=== PATIENT | female | born 1995 | race Caucasian/White ===

== ENCOUNTER 2023-11-21 13:44 | Outpatient (CLI) | payer OTHER, SELFPAY ==
--- NOTE | ~2023-11-21 | US_ITS ---
EXAMINATION: US thyroid DATE: 11/21/2023 14:05 INDICATION: Thyroid nodule. TECHNIQUE: Multiple ultrasound images of the thyroid were obtained. COMPARISON: None. FINDINGS: The right thyroid lobe measures 6.4 x 2.4 x 2.0 cm. The left thyroid lobe measures 7.0 x 3.3 x 3.9 c m. The thyroid demonstrates heterogeneous hypoechogenicity. Vascularity is normal. In the left thyro id lobe, there is a 4.7 cm solid, isoechoic, wider than tall nodule with smooth margins without echog enic foci (TI-RADS TR3). In the left thyroid lobe, there is a 2.3 cm solid, isoechoic, wider than dinorah l nodule with smooth margins without echogenic foci (TR3). In the right thyroid lobe, there is a 3.1 cm solid, isoechoic, wider than tall nodule with smooth margins without echogenic foci (TR3). IMPRESSION: 1. Multinodular goiter. By report, the patient has a history of benign biopsy. Correlation with prior outside imaging is recommended to determine management. Reviewed, dictated and finalized at location E.
== END 2023-11-21 13:45 ==
LOC: MICIMG 13:44
PROVIDERS: PCP Emergency Medicine; Visit Provider Emergency Medicine
DX: E04.2 Nontoxic multinodular goiter (principal)
CPT/HCPCS: 76536

== ENCOUNTER 2024-05-28 13:11 | Outpatient (CLI) | payer OTHER, SELFPAY | END 2024-05-28 13:12 | disposition home or self-care (01) | PROVIDERS: Student in an Organized Health Care Education/Training Program; PCP Emergency Medicine; Visit Provider Obstetrics & Gynecology | DX: N94.89 Other specified conditions associated with female genital organs and menstrual cycle (principal) | CPT/HCPCS: 36415; 81329; 87086 ==

== ENCOUNTER 2024-07-02 12:09 | Outpatient (CLI) | payer OTHER, SELFPAY ==
[2024-07-02 13:11] LABS: Free T4 Free Thyroxine 0.59 ng/dL (0.78-2.19)
== END 2024-07-02 12:10 | disposition home or self-care (01) ==
LOC: ANHLAB 12:11
PROVIDERS: PCP Emergency Medicine; Visit Provider Obstetrics & Gynecology
DX: E06.3 Autoimmune thyroiditis (principal)
CPT/HCPCS: 36415; 84439; 84443

== ENCOUNTER 2024-07-27 13:06 | Outpatient (CLI) | payer OTHER, SELFPAY ==
[2024-07-27 14:31] LABS: Free T4 Free Thyroxine 0.62 ng/dL (0.78-2.19)
[2024-07-29 03:54] LABS: T3 Free 3.1 pg/mL (2.3-4.2)
== END 2024-07-27 13:07 | disposition home or self-care (01) ==
LOC: ANHLAB 13:09
PROVIDERS: PCP Emergency Medicine; Visit Provider Obstetrics & Gynecology
DX: E06.3 Autoimmune thyroiditis (principal)
CPT/HCPCS: 36415; 84439; 84443; 84480

== ENCOUNTER 2024-08-02 10:29 | Outpatient (CLI) | payer OTHER, SELFPAY ==
--- NOTE | ~2024-08-02 | US_ITS ---
EXAMINATION: US thyroid DATE: 08/02/2024 10:57 INDICATION: Nontoxic single thyroid nodule. Felicity's thyroiditis. TECHNIQUE: Multiple ultrasound images of the thyroid were obtained. COMPARISON: Ultrasound 11/21/2023 FINDINGS: The right thyroid lobe measures 5.8 x 2.4 x 3.0 cm. The left thyroid lobe measures 7.6 x 4.0 x 4.0 c m. In the left thyroid lobe, there is a 4.1 cm solid, isoechoic, wider than tall nodule with ill-def ined margin without echogenic foci (TI-RADS TR3). In the right thyroid lobe, there is a 3.1 cm solid, isoechoic, wider than tall nodule with ill-defined margin without echogenic foci (TR3). IMPRESSION: 1. Multinodular goiter, stable from 11/21/2023. By report, the patient has a history of benign biopsy. Correlate with prior outside imaging is recommended to determine management. Reviewed, dictated and finalized at location A. [employer] IMPRESSION: 1. Multinodular goiter, stable from 11/21/2023. By report, the patient has a his tory of benign biopsy. Correlate with prior outside imaging is recommended to d etermine management.
== END 2024-08-02 10:30 | disposition home or self-care (01) ==
PROVIDERS: PCP Family Medicine; Visit Provider Emergency Medicine
DX: E04.2 Nontoxic multinodular goiter (principal)
CPT/HCPCS: 76536

== ENCOUNTER 2024-11-25 12:34 | Observation (INO) | payer OTHER, SELFPAY ==
[2024-11-25] VITALS (60 sets, daily range): BP systolic 104; BP diastolic 49; PULSE 67–100; O2SAT 96–100; BMI 36.1
--- NOTE | ~2024-11-25 | US_ITS ---
EXAMINATION: US OB BPP wo non-stress DATE: 11/25/2024 16:41 INDICATION: cardiac decelerations. Assess amniotic fluid index and biophysical profile TECHNIQUE: Real-time pelvic ultrasound was performed. The interpreting radiologist was not present fo r the study. COMPARISON: None. FINDINGS: There is a single living fetus in vertex presentation. The placenta is anterior and not low-lying. F etal heart rate is 143 beats per minute (bpm). Amniotic fluid index measures 15.1 cm which is normal (5th%-95%: 7.5-84.4 cm at 37 weeks estimated gestational age). Biophysical profile performed by the technologist: breathing (30 sec sustained breathing in 30 minutes): 2 out of 2 movement (3 gross body movements in 30 minutes): 2 out of 2 tone (one episode of esqatrf-wliikftfq-qvydbpz limb movement): 2 out of 2 Amniotic fluid pocket (2 cm): 2 out of 2 Total score: 8 out of 8 IMPRESSION: 1. Single living fetus in vertex presentation with heart rate of 143 bpm. 2. Biophysical profile 8 out of 8. 3. Normal amniotic fluid index of 15.1 cm. Reviewed, dictated and finalized at location A.
--- OUTSIDE RECORDS SUMMARY | 2024-11-25 13:25 | XMS_ITS | Encounter Summary ---
Author Organization [facility] Healthcare Address [address] [place] [id number] Care Team Providers Care Supervisor [employer] Name Role Phone Jonathan Linton MD Primary Care Provider Allison Leal MD Unavailable [phone] Encounter Details Date Type Department Care Team (Late st Contact Info) Description 10/04/2024 Results Follow-Up [facility] Medical Group Primary Care at [address] [id number] Jonathan Linton MD [address] [place] [address] [address] [place] [address] Hepatitis C antibody Blood, Thyroid peroxidase antibody (TPO), TSH receptor antibody, Additional followed-up results: 8 Social History Tobacco Use Types Packs/Day Years Used Date Smoking Tobacco: Never Smokeless Tobacco: Never PHQ-2 Answer Date Recorded PHQ-2 Total Score (If total score is 3 or more points, staff should administer the PHQ-9) 0 09/30/2024 Comments Yes Sex and Gender Information Value Date Recorded Sex Assigned at Not on file Legal Sex Female 11:24 AM CDT Gender Identity Not on file Sexual Orientation Not on file documented as of this encounter Miscellaneous Notes * Result Encounter Note - Jonathan Linton MD - 10/04/2024 4:57 AM CDT Antibody testing - shows no elevated thyroid peroxidase antibody or TSH receptor antibody. Normal TSH but low T4 which is unusual. Also if you had cruz I would have expected antibody testing to be positive. I will have my staff request your most recent lab results from your OBGYN as well as primary care provider regarding a thyroid function/hormones. Given your I want to confirm this sooner with repeat testing in 3 weeks. Staff can we request prior lab work done from her OBGYN and Previous primary care provider regarding her thyroid hormones to confirm and compare from past 1 year only documented in this encounter Plan of Treatment Scheduled Orders Name Type Priority Associated Diagnoses Orde r Schedule TSH Lab Routine Cruz thyroiditis Expected: 10/18/2024 (Approximate), Expires: 04/05/2025 T4, free Lab Routine Cruz thyroiditis Expected: 10/18/2024 (Approximate), Expires: 04/05/2025 documented as of this encounter Visit Diagnoses Diagnosis Cruz thyroiditis- Primary documented in this encounter Care Teams Supervisor [employer] Relationship Specialty Start Date End Date Jonathan Linton MD PCP - General Family Medicine 09/30/24 Allison Leal MD [address] [place] [address] Obstetrics and Gynecology 09/30/24 documented as of this encounter
--- OUTSIDE RECORDS SUMMARY | 2024-11-25 13:25 | XMS_ITS | Referral Summary ---
Author Organization [facility] Address [address] [place] [address] Phone Care Team Providers Care [employer] Name Role Phone Jonathan Linton MD Primary Care Provider Allison Leal MD Unavailable [phone] Encounters Date Type Department Care Team Description 10/13/2024 Telephone [facility] Primary Care at [address] [id number] Jonathan Linton MD Medical Question/Miscellaneo us 10/04/2024 Results Follow-Up [facility] Primary Care at [address] [id number] Jonathan Linton MD Hepatitis C antibody Blood, Thyroid peroxidase antibody (TPO), TSH receptor antibody, Additional followed-up results: 8 09/30/2024 5:28 PM CDT - 09/30/2024 11:59 PM CDT Hospital Encounter [address] [address] Encounter for hepatitis C screening test for low risk patient; Cruz thyroiditis; Multiple thyroid nodules; Obesity (BMI 30-39.9) Discharge Disposition: Discharge to home or self care 09/30/2024 9:30 AM CDT Lab [facility] Outpatient Lab at [address] [address] Cruz thyroiditis (Primary Dx) 09/30/2024 8:30 AM CDT Office Visit [facility] Primary Care at [address] [address] Jonathan Linton MD Multiple thyroid nodules (Primary Dx); Cruz thyroiditis; History of gestational hypertension; Obesity (BMI 30-39.9); Encounter for hepatitis C screening test for low risk patient; with 29 completed weeks gestation from Last 3 Months Allergies No known active allergies Medications VIT 10-IRON FUM-FOLIC ORAL Take by mouth daily Active aspirin 81 mg chewable tablet Take 1 tablet (81 mg total) by mouth daily Active Active Problems Problem Noted Date Diagnosed Date Multiple thyroid nodules 09/30/2024 Assessment & Plan (09/30/2024 11:51 AM CDT): - known condition - past US thyroid 07/2024 in file, showed stable findings in comparison to imaging from 11/2024 - In July 2024, an ultrasound showed a multinodular goiter, stable from November 2023. The right thyroid lobe has a solid nodule, and the left lobe has a 4.1 cm solid nodule classified as Trd 3. - past hx of benign finding on FNA in 2015, will try to request this record in future - hx of cruz's - check labs and antibodies with 29 completed weeks gestation 09/05 History of gestational hypertension 03/03/2024 Assessment & Plan (09/30/2024 11:49 AM CDT): BP Readings from Last 3 Encounters: 09/30/24 102/64 Delivery at 37 weeks for gestational HTN in the past Currently at 29 weeks Cruz thyroiditis 03/03/2024 Overview (10/12/2024): Low Free T4 09/28 - noted with normal T3 and normal TSH Antibody testing - no elevated Thyroid peroxidase antibody or TSH receptor antibody TSIG <=1.3 <1.0 Lab Results Component Value Date TSH 2.73 09/30/2024 FREET4 0.61 (L) 09/30/2024 From [facility] labs on 02/2024 patient had elevated thyroglobulin antibodies 391, and elevated thyroid peroxidase antibodies at 46 Assessment & Plan (09/30/2024 11:52 AM CDT): - diagnosed around 02/2024 via antibody testng - has known thyroid nodules, see other a/p section - never needed medication for low thyroid - recheck labs and antibodies Diagnosed in March 2024 after examination revealed an enlarged thyroid, confirmed by antibodies and ultrasound. Current ultrasound from July 2024 shows a multinodular goiter, well-managed since November 2023. No current need for thyroid medication as thyroid function tests remain within normal limits, though T4 is at the low end of normal. can affect thyroid levels. Discussed Cruz's, potential progression to hypothyroidism, and importance of monitoring thyroid function, especially during . Explained antibodies do not necessarily indicate dysfunction and thyroid nodules rarely affect function. Emphasized monitoring TSH and T4 levels during , as low levels can be problematic. - Reviewed previous US records from 07/2024 - past US thyroid 07/2024 in file, showed stable findings in comparison to imaging from 11/2024 - In future will request FNA results from around 2015 - Order blood work including thyroid function tests and antibodies - Monitor thyroid function during - Follow up in six months post- No results found for: TSH Comments Yes Resolved Problems Problem Noted Date Diagnosed Date Resolved Date Factor V Leiden mutation 03/03/2024 Immunizations Immunization Administration Dates Next Due HPV, Unspecified 07/31/2007,02/10/2007, 7 Hep B Vaccine 03/16/2016 Hep B, Adolescent or Pediatric 10/12/2015,2015 Influenza, Quadrivalent, Rec ombinant, Egg Free, Preservative Free, Intramuscular 04/01/2023 Influenza, Quadrivalent, Spl it, Intramuscular 03/05/2019 Influenza, Quadrivalent, Spl it, Preservative Free, Intramuscular 02/21/2020,03/16/2016 Influenza, Trivalent, Cell Culture-based MDCK, Preservative Free, Antibiotic Free, Intramuscular 03/18/2022 Influenza, Trivalent, IM (MDV) 03/07/2021 Influenza, Trivalent, Preser vative Free, Intramuscular 04/09/2024 Influenza, Unspecified 02/18/2017 PPD TEST 04/16/2019 Tdap 09/21/2024,,10/02/2016,11/21 Social History Tobacco Use Types Packs/Day Years Used Date Smoking Tobacco: Never Smokeless Tobacco: Never Tobacco Cessation:Counseling Given: Not Answered PHQ-2 Answer Date Recorded PHQ-2 Total Score (If total score is 3 or more points, staff should administer the PHQ-9) 0 09/30/2024 Comments Yes Sex and Gender Information Value Date Recorded Sex Assigned at Not on file Legal Sex Female 11:24 AM CDT Gender Identity Not on file Sexual Orientation Not on file Last Filed Vital Signs Vital Sign Reading Time Taken Comments Blood Pressure 102/64 09/30/2024 8:39 AM CDT Pulse 81 09/30/2024 8:39 AM CDT Temperature 36.8 C (98.2 F) 09/30/2024 8:39 AM CDT Respiratory Rate - - Oxygen Saturation 98% 09/30/2024 8:39 AM CDT Inhaled Oxygen Concentration - - Weight 105.4 kg (232 lb 4.8 oz) 09/30/2024 8:39 AM CDT Height 175.3 cm (5' 9 ) 09/30/2024 8:39 AM CDT Body Mass Index 34.3 09/30/2024 8:39 AM CDT Plan of Treatment Not on file Procedures Procedure Name Priority Date/Time Associated Diagnosis Comments EGFR Routine 09/30/2024 12:00 PM CDT Obesity (BMI 30-39.9) DIFFERENTIAL AUTO Routine 09/30/2024 12: 00 PM CDT Obesity (BMI 30-39.9) CBC WITH AUTO DIFFERENTIAL Routine 09/30/2024 12:00 PM CDT Obesity (BMI 30-39.9) COMPREHENSIVE METABOLIC PANEL Routine 09/30/2024 12:00 PM CDT Obesity (BMI 30-39.9) LIPID PANEL Routine 09/30/2024 12:00 PM CDT Obesity (BMI 30-39.9) TSH Routine 09/30/2024 12:00 PM CDT Multiple thyroid nodules Cruz thyroiditis Obesity (BMI 30-39.9) T3, FREE Routine 09/30/2024 12:00 PM CDT Cruz thyroiditis T4, FREE Routine 09/30/2024 12:00 PM CDT Cruz thyroiditis TSH RECEPTOR ANTIBODY Routine 09/30/2024 12:00 PM CDT Cruz thyroiditis THYROID PEROXIDASE ANTIBODY Routine 09/30/2024 12:00 PM CDT Cruz thyroiditis THYROID STIMULATING IMMUNOGLOBULIN Routine 09/30/2024 12:00 PM CDT Cruz thyroiditis HEPATITIS C ANTIBODY Routine 09/30/2024 12:00 PM CDT Encounter for hepatitis C screening test for low risk patient from Last 3 Months Results * eGFR (09/30/2024 12:00 PM CDT) eGFR >90 >=60 mL/min/1. 73 m2 Comment: Interpretive Data Reference Interval Normal >/= 90 mL/min/1.73m2 Mildly decreased* 60 - 89 mL/min/1.73m2 Mildly to moderately decreased 45 - 59 mL/min/1.73m2 Moderately to severely decreased 30 - 44 mL/min/1.73m2 Severely decreased 15 - 29 mL/min/1.73m2 Kidney Failure < 15 mL/min/1.73m2 *Relative to young adult level Estimated glomerular filtration rate is determined by the 2020 CKD-EPI equation recommended by the National Kidney Foundation (A Unifying Approach to GFR Estimation: Recommendations of the NKF-ASK Task Force on Reassessing the Inclusion of Race in Diagnosing Kidney Disease, JASN 2020). The CKD-EPI equation should not be used for patients with unstable renal function and has not been validated in children and those over 70. Current interpretive data was last reviewed 2021. Blood 09/30/2024 12:0 0 PM CDT 09/30/2024 5:48 PM CDT us Jonathan Linton MD LAB BLOOD ORDERABLES nal Result [facility] [address] [place] [address] * (ABNORMAL) Differential, auto (09/30/2024 12:00 PM CDT) Neutrophil abs 7.8(H) 1.5 - 6.5 K/cumm Imm gran abs 0.2(H) 0.0 - 0.1 K/cumm [facility] Lymphocyte abs 1.8 0.8 - 3.3 K/cumm [facility] Monocyte abs 0.9(H) 0.2 - 0.8 K/cumm [facility] Eosinophil abs 0.2 0.0 - 0.5 K/cumm [facility] Basophil abs 0.0 0.0 - 0.1 K/cumm [facility] Neutrophil pct 71.8 % [facility] Comment: Interpretive Data Percent cell count reference ranges are not reported, since discordance with absolute values may lead to misinterpretation of CBC data. Current Interpretive Data was last revised on 2017. Imm gran pct 1.4 % [facility] Comment: Interpretive Data Percent cell count reference ranges are not reported, since discordance with absolute values may lead to misinterpretation of CBC data. Current Interpretive Data was last revised on 2017. Lymphocyte pct 16.6 % [facility] Comment: Interpretive Data Percent cell count reference ranges are not reported, since discordance with absolute values may lead to misinterpretation of CBC data. Current Interpretive Data was last revised on 2017. Monocyte pct 8.1 % [facility] Comment: Interpretive Data Percent cell count reference ranges are not reported, since discordance with absolute values may lead to misinterpretation of CBC data. Current Interpretive Data was last revised on 2017. Eosinophil pct 1.7 % [facility] Comment: Interpretive Data Percent cell count reference ranges are not reported, since discordance with absolute values may lead to misinterpretation of CBC data. Current Interpretive Data was last revised on 2017. Basophil pct 0.4 % [facility] Comment: Interpretive Data Percent cell count reference ranges are not reported, since discordance with absolute values may lead to misinterpretation of CBC data. Current Interpretive Data was last revised on 2017. Blood 09/30/2024 12:0 0 PM CDT 09/30/2024 5:48 PM CDT Result [facility] Jonathan Linton MD LAB BLOOD ORDERABLES Fi nal Result Performing Organization Address [facility] de Phone Number [facility] [id number] [place] [address] * TSH receptor antibody (09/30/2024 12:00 PM CDT) Pathologist [facility] TSH receptor ab <1.10 0.00 - 1.75 IUnits/L [facility] Comment: ADDITIONAL INFORMATION At a decision limit of 1.75 IU/L, this assay has 97% sensitivity and 99% specificity for detection of Graves' disease. In healthy individuals and in patients with thyroid disease without diagnosis of Graves' disease, the upper limit of anti-TSHR values are 1.22 IU/L and 1.58 IU/L, respectively (97.5th percentiles). Test Performed by: [place] [address] In Service Educator: Angelica Art Ph.D.; CLIA# [id number] Blood 09/30/2024 12:0 0 PM CDT 09/30/2024 5:48 PM CDT Jonathan Linton MD LAB BLOOD ORDERABLES Fi nal Result Performing Organization Address [facility] Co de Phone Number MELISSA[facility]ESS[facility] [phone] [place] [address] [facility] * (ABNORMAL) CBC with auto differential (09/30/2024 12:00 PM CDT) Pathologist [facility] WBC 10.9(H) 3.8 - 9.9 K/cumm Hgb 12.1 11.9 - 15.5 g/dL [facility] Hct 39.2 35.6 - 45.5 % [facility] Plt 211 150 - 400 K/cumm [facility] MPV 11.2 9.1 - 12.3 fL [facility] RBC 4.05 3.90 - 5.20 M/cumm [facility] MCV 96.8(H) 81.3 - 96.4 fL [facility] MCH 29.9 27.1 - 33.3 pg [facility] MCHC 30.9(L) 32.3 - 35.7 g/dL [facility] CH RDW CV 13.9 11.1 - 14.9 % [facility] RDW SD 49.3(H) 35.7 - 48.1 fL [facility] NRBC abs 0.00 0.00 - 0.01 K/cumm [facility] Blood 09/30/2024 12:0 0 PM CDT 09/30/2024 5:48 PM CDT Jonathan Linton MD LAB BLOOD ORDERABLES Fi nal Result Performing Organization Address [facility] de Phone Number [facility] [address] [place] [place] [place] [address] * Hepatitis C antibody Blood (09/30/2024 12:00 PM CDT) Hep C Ab Nonreactive Nonreactive Comment: Interpretive Data Nonreactive: Antibodies to HCV not detected. Does NOT exclude the possibility of recent exposure to HCV. Equivocal: Equivocal for HCV antibodies. Supplemental molecular testing will be automatically performed to determine infection status in accordance with current CDC screening recommendations. Reactive: Positive for HCV antibodies. This may represent current or past HCV infection. Supplemental molecular testing will be automatically performed to determine current infection status in accordance with current CDC screening recommendations. Interpretive data was last revised on 2019. Blood 09/30/2024 12:0 0 PM CDT 09/30/2024 5:48 PM CDT Jonathan Linton MD LAB MICROBIOLOGY - GENE RAL ORDERABLES Final Result Performing Organization Address City/[facility] Co de Phone Number [facility] [phone] [employer] [address] * Thyroid peroxidase antibody (TPO) (09/30/2024 12:00 PM CDT) Anti Thyroid Peroxidase <30 <=34 IUnits/mL Comment: ATPO Interpretive Data Results may be up to 28% higher in patients receiving Itraconazole. Current interpretive data was last revised 2020. Testing performed by: [facility], [address] [place]., [address] Blood 09/30/2024 12:0 0 PM CDT 10/01/2024 10:06 AM CDT Jonathan Linton MD LAB BLOOD ORDERABLES Fi nal Result [facility] [address] [place] [address] * Thyroid stimulating immunoglobulin (09/30/2024 12:00 PM CDT) Pathologist [facility] TSIG <1.0 <=1.3 [facility] Comment: Test Performed by: [place] [id number] In Service Educator: Angelica Art Ph.D.; CLIA# [id number] Blood 09/30/2024 12:0 0 PM CDT 09/30/2024 5:48 PM CDT Jonathan Linton MD LAB [place]LOOD [place] [address] [address] [facility] [place] [address] [place] ref Lab * T3, free (09/30/2024 12:00 PM CDT) Pathologist [facility] Free T3 2.8 2.0 - 4.4 pg/mL Blood 09/30/2024 12:0 0 PM CDT 09/30/2024 5:48 PM CDT Jonathan Linton MD LAB BLOOD ORDERABLES Fi nal Result Performing Organization Address [facility] Co de Phone Number [facility] [phone] [facility] [place] [address] * TSH (09/30/2024 12:00 PM CDT) Thyroid Stimulating Hormone 2.73 0.30 - 4.20 mcIUnit/mL Blood 09/30/2024 12:0 0 PM CDT 09/30/2024 5:48 PM CDT Jonathan Linton MD LAB BLOOD ORDERABLES Fi nal Result Performing Organization Address [facility] de Phone Number [facility] [address] [facility] [place] [address] * (ABNORMAL) T4, free (09/30/2024 12:00 PM CDT) Free T4 0.61(L) 0.90 - 1.70 ng/dL Blood 09/30/2024 12:0 0 PM CDT 09/30/2024 5:48 PM CDT Jonathan Linton MD LAB BLOOD ORDERABLES Fi nal Result Performing Organization Address [facility] Co de Phone Number [facility] [address] [place] [address] * (ABNORMAL) Lipid panel (09/30/2024 12:00 PM CDT) Cholesterol 228(H) 30 - 199 mg/dL Comment: Interpretive Data Ages < or = 19 years Acceptable: <170 mg/dL Borderline high: 170-199 mg/dL High: >or= 200 mg/dL Ages > or = 20 years Desirable: <200 mg/dL Borderline high: 200-239 mg/dL High: >or= 240 mg/dL Literature References: 1. Expert Panel on Integrated Guidelines for Cardiovascular Health and Risk Reduction in Children and Adolescents. Pediatrics 2011;128:S213 2. NCEP Expert Panel. Circulation 2004;110:227 Current Interpretive Data was last revised on 2018. Triglycerides 147 <=149 mg/dL [facility] Comment: Interpretive Data Ages < or = 9 years Acceptable: <75 mg/dL Borderline high: 75-99 mg/dL High: >or= 100 mg/dL Ages 10 to 20 years Acceptable: <90 mg/dL Borderline high: 90-129 mg/dL High: >or= 130 mg/dL Ages > or = 20 years Desirable: <150 mg/dL Borderline high: 150-199 mg/dL High: 200-499 mg/dL Very high: >or= 499 mg/dL Literature References: 1. Expert Panel on Integrated Guidelines for Cardiovascular Health and Risk Reduction in Children and Adolescents. Pediatrics 2011;128:S213 2. NCEP Expert Panel. Circulation 2004;110:227 Current Interpretive Data was last revised on 2018. HDL 101 >=40 mg/dL [facility] Comment: Interpretive Data Ages < or = 19 years Acceptable: >45 mg/dL Borderline low: 40-45 mg/dL Low: <40 mg/dL Ages > or = 20 years Desirable: >or= 60 mg/dL Low: <40 mg/dL Literature References: 1. Expert Panel on Integrated Guidelines for Cardiovascular Health and Risk Reduction in Children and Adolescents. Pediatrics 2011;128:S213 2. NCEP Expert Panel. Circulation 2003;110:227 Current Interpretive Data was last revised on 2018. LDL, calculated 102 <=129 mg/dL [facility] Comment: Interpretive Data Ages < or = 19 years Acceptable: <110 mg/dL Borderline high: 110-129 mg/dL High: >or= 130 mg/dL Ages > or = 20 years Optimal: <100 mg/dL Near optimal: 100-129 mg/dL Borderline high: 130-159 mg/dL High: >160 mg/dL Calculated using the Quirino LDL-C estimating equation. This equation was implemented on 2024. Prior to this date LDL-C was estimated using the Friedewald equation. Literature References: 1. Expert Panel on Integrated Guidelines for Cardiovascular Health and Risk Reduction in Children and Adolescents. Pediatrics 2011;128:S213 2. NCEP Expert Panel. Circulation 2004;110:227 3. Quirino Hoover et al. RAFAEL Cardiol. 2020 May 1;5(5):540-548. doi: 10.1001/jamacardio.2020.0013 Current Interpretive Data was last revised on 2024. Non-HDL Cholesterol 127 mg/dL [facility] Comment: Interpretive Data Ages < or = 19 years Acceptable: <120 mg/dL Borderline high: 120-144 mg/dL High: >145 mg/dL Ages > or = 20 years When triglycerides are >200 mg/dL, Non-HDL cholesterol is a secondary target of therapy with treatment goals that are 30 mg/dL greater than the LDL cholesterol target. Literature References: 1. Expert Panel on Integrated Guidelines for Cardiovascular Health and Risk Reduction in Children and Adolescents. Pediatrics 2011;128:S213 2. NCEP Expert Panel. Circulation 2004;110:227 Current Interpretive Data was last revised on 2018. Chol/HDL ratio 2 [facility] Blood 09/30/2024 12:0 0 PM CDT 09/30/2024 5:48 PM CDT Narrative [facility] - 09/30/2024 6:31 PM CDT Has the patient been fasting for 8 hours or more?->No Jonathan Linton MD LAB BLOOD ORDERABLES nal Result [facility] [address] [place] [address] * (ABNORMAL) Comprehensive metabolic panel (09/30/2024 12:00 PM CDT) Sodium 138 135 - 145 mmol/L Potassium, pl 4.4 3.3 - 4.9 mmol/L [facility] Chloride 106 97 - 110 mmol/L [facility] CO2 24 22 - 32 mmol/L [facility] Anion gap 8 2 - 15 mmol/L [facility] BUN 7 6 - 25 mg/dL [facility] Creatinine 0.52(L) 0.60 - 1.10 mg/dL [facility] Glucose 72 70 - 199 mg/dL [facility] Comment: Interpretive Data Fasting glucose >/= 126 mg/dl is diagnostic for diabetes. Fasting is defined as no caloric intake for at least 8 hours. Fasting glucose between 100 mg/dl to 125 mg/dl is diagnostic of prediabetes. In a patient with classic symptoms of hyperglycemia or hyperglycemic crisis, a random glucose >/= 200 mg/dl is diagnostic for diabetes. In the absence of unequivocal hyperglycemia, results should be confirmed by repeat testing. The classification and Diagnosis of Diabetes Diabetes Care 2021; 46: S19-S40. Current interpretive data was last revised 2022. Calcium 9.1 8.5 - 10.3 mg/dL [facility] Bilirubin, total <0.2 0.1 - 1.2 mg/dL [facility] Protein, pl 6.5 6.5 - 8.5 g/dL [facility] Albumin 3.7 3.5 - 5.0 g/dL [facility] Alk phos 53 40 - 130 Units/L [facility] ALT 16 7 - 45 Units/L [facility] AST 23 10 - 45 Units/L [facility] Blood 09/30/2024 12:0 0 PM CDT 09/30/2024 5:48 PM CDT us Jonathan Linton MD LAB BLOOD ORDERABLES nal Result [facility] [address] [place] [address] from Last 3 Months Insurance [facility] [employer] SIG [id number] Care Teams [employer] Relationship Specialty Start Date End Date Jonathan Linton MD PCP - General Family Medicine 09/30/24 Allison Leal MD [address] [place] [address] Obstetrics and Gynecology 09/30/24
--- OUTSIDE RECORDS SUMMARY | 2024-11-25 13:25 | XMS_ITS | Clinical Summary ---
Author Organization [facility] [employer] Address [address] [place] [address] Care Team Providers Care Dairy Laboratory Technician Name Role Phone Unavailable Primary Care Provider Unavailabl e Source Comments [facility] [employer],non-owned Affiliates and Associated Physician Practices is amultiple site organization consisting of ambulatory clinics and hospital sitesin [place], [place], [place] and [place]. This disclosure is being madepursuant to the Care Everywhere program and may not contain all information available regarding this patient. Last updated 18.[facility] [employer] Allergies No known active allergies Medications * Be aware that medications may not be up to date on this document. Alwaysverify current medications with the patient. 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); FV Leiden HTZG 07/03/2024 Hypothyroid in , antepartum 07/03/2024 History of gestational hypertension 07/03/2024 BMI 33.0-33.9,adult 07/03/2024 Obesity affecting , antepartum 07/03/20 24 Factor 5 Leiden mutation, heterozygous 9 Multiple thyroid nodules 02/16/2019 Estimated Date of Delivery Comme nts Yes 12/16/2024 Based on last me nstrual period of 03/11/2024 Resolved Problems Problem Noted Date Diagnosed Date Resolved Date Gestational hypertension, third trimester 07/26/2020 07/03/2024 with 37 weeks completed gestation 07/26/2020 07/03/2024 Gestational hypertension 07/18/2020 IUD (intrauterine device) in place 12/06/2019 Overview (02/12/2019): ParaGard IUD placed 12/16/14 Encounters Date Type Department Care Team Description 11/03/2024 8:15 AM CDT - 11/03/2024 11:59 PM CDT Hospital Encounter [facility] [address] [place] [id number] Vern Gee MD Discharge Disposition: Home or Self Care 11/01/2024 Orders Only [facility] [address] [place] [phone] Mare Rivera, AD SETTER-CHECKER CASHIER 10/06/2024 1:45 PM CDT - 10/06/2024 11:59 PM CDT Hospital Encounter [facility] [address] [place] [address] [phone] Vern Gee MD Discharge Disposition: Home or Self Care 09/08/2024 12:54 PM ENGINEERING SUPERVISOR - 09/08/2024 11:59 PM ENGINEERING SUPERVISOR Hospital Encounter [facility] [address] [place] [phone] Vern Gee MD Discharge Disposition: Home or Self Care 09/08/2024 Orders Only [facility] [address] [place] [phone] Mare Rivera, AD SETTER-CHECKER CASHIER from Last 3 Months Immunizations Immunization Administration Dates Next Due CovCartiva primary monoval ent 12+ yr 0.3mL Purple cap 07/15/2020,06/28/2020 HEP B VACCINE, ADULT 3 DOSE 03/16/2016 HEP B VACCINE, PED/ADOL 10/12/2015,09/14/2015 HPV VACCINE 07/31/2007,02/10/2007,11/21/2006 INFLUENZA VACCINE 02/18/2017 INFLUENZA VACCINE, QUADR. (F LUZONE; FLULAVAL; FLUARIX; AFLURIA QUADRIVALENT; 6MO+), 0.5 ML (IIV4) 02/21/2020,03/05/2019,03/16/2016 TDAP (7yrs+) 05/16/2020,10/02/2016,11/21/2006 Family History Medical History Relation Name Comments Other Maternal Aunt Factor IV Cancer - Breast Maternal Grandmother Other Mother Factor IV Relation Name Status Comments Maternal Aunt Maternal Grandmother Mother Social History Tobacco Use Types Packs/Day Years Used Date Smoking Tobacco: Never Smokeless Tobacco: Never Alcohol Use Standard Drinks/Week Comments Not Currently 0 (1 standard drink = 0.6 oz pur e alcohol) AUDIT-C Answer Date Recorded Frequency of Alcohol Consumption Monthly or less 02/16/2019 Average Number of Drinks 3 or 4 019 Frequency of Binge Drinking Less than monthly Prospect Depression Scale Answer Date Recorded Last EPDS Total Score Not on file 09/06/2020 The thought of harming myself has occurred to me . Never 09/06/2020 Estimated Date of Delivery Comme nts Yes 12/16/2024 Based on last me nstrual period of 03/11/2024 Sex and Gender Information Value Date Recorded Sex Assigned at Not on file Legal Sex Female 2:35 PM CDT Gender Identity Not on file Sexual Orientation Not on file Last Filed Vital Signs Vital Sign Reading Time Taken Comments Blood Pressure 106/64 11/03/2024 8:38 AM CDT Pulse 71 11/03/2024 8:38 AM CDT Temperature 36.7 C (98 F) 09/21/2020 5:13 PM CDT Respiratory Rate 18 09/21/2020 5:13 PM CDT Oxygen Saturation 100% 09/21/2020 5:13 PM CDT Inhaled Oxygen Concentration - - Weight 108 kg (238 lb) 11/03/2024 8:38 AM CDT Height 175.3 cm (5' 9 ) 07/02/2024 11:28 AM ENGINEERING SUPERVISOR Body Mass Index 35.15 07/02/2024 11:28 AM ENGINEERING SUPERVISOR Plan of Treatment Upcoming Encounters Date Type Department Care Team (Late st Contact Info) Description 12/01/2024 9:45 AM CDT Hospital Encounter [facility] [address] [place], [place] [phone] Health Maintenance Due Date Last Done Comments HEPATITIS B VACCINE (2 of 3 - 19+ 3-dose series) 04/13/2016 03/16/2016, 10/12/2015, 09/14/2015 PAP SMEAR 10/10/2023 10/09/2020, 02/04, 12/27/2017, Additional history exists COVID-19 VACCINE ( season) 2024 07/15/2020, 06/28/2020 DEPRESSION SCREENING 07/07/2024 OB-ONE HOUR GLUCOSE 09/09/2024 05/16/2020, OB-TDAP CURRENT 09/16/20242019, 10/02/2016, 11/21/2006 OB-GROUP B STREP SCREEN 11/11/2024 07/13/2020 DTAP/TDAP/TD VACCINES (4 - Td or Tdap) 05/16/2030 05/16/2020, 10/02/2016, 11/21/2006 ZOSTER VACCINE (1 of 2) 10/23/2043 HPV VACCINE Completed 07/31/2007, 01/2007, 11/21/2006 HIV SCREENING Completed 05/16/2020, 01/05/2020 HEPATITIS C SCREENING Completed 10/21/2022, 020 INFLUENZA VACCINE Completed 04/09/2024, , 03/18/2022, Additional history exists HIB VACCINE Aged Out No longer eligi ble based on patient's age to complete this topic MENINGOCOCCAL (Group B) VACCINE SHARED DECISION-MAKING Aged Out No longer eligible based on patient's age to complete this topic MENINGOCOCCAL GROUPS A/C/Y/W VACCINE Aged Out No longer eligible based on patient's age to complete this topic PNEUMOCOCCAL VACCINE Aged Out No long er eligible based on patient's age to complete this topic Respiratory Syncytial Virus (RSV) Vaccine Pt: or over 60 yrs (No Doses Required) Completed Procedures Procedure Name Priority Date/Time Associated Diagnosis Comments SONOGRAM - COMPLETE Routine 11/03/2024 8 :10 AM CDT History of gestational hypertension BMI 33.0-33.9,adult Obesity affecting , antepartum, unspecified obesity type (HCC) 29 weeks gestation of (HCC) Encounter for anatomic survey (HCC) Encounter for screening (HCC) TSH 11/01/2024 1:49 PM CDT T4 FREE 11/01/2024 1:49 PM CDT SONOGRAM - COMPLETE Routine 10/06/2024 2 :09 PM CDT History of gestational hypertension BMI 33.0-33.9,adult Obesity affecting , antepartum, unspecified obesity type (HCC) 29 weeks gestation of (HCC) Encounter for anatomic survey (HCC) Encounter for screening (HCC) TSH 09/08/2024 1:54 PM ENGINEERING SUPERVISOR T4 FREE 09/08/2024 1:54 PM ENGINEERING SUPERVISOR PAP IG RFLX HPV HR ALL PATH Routine 10/09/2020 11:03 AM CDT Well woman exam CULTURE STREP B Routine 07/13/2020 4:36 PM ENGINEERING SUPERVISOR Encounter for supervision of normal first in third trimester 35 weeks gestation of GLUCOSE CHALLENGE Routine 05/16/2020 10: 37 AM ENGINEERING SUPERVISOR Encounter for supervision of normal first in second trimester 27 weeks gestation of HIV-1 HIV-2 ANTIBODY + HIV P24 AG PANEL Routine 05/16/2020 10:37 AM ENGINEERING SUPERVISOR Encounter for supervision of normal first in second trimester 27 weeks gestation of HEPATITIS C ANTIBODY Routine 01/05/2020 10:58 AM CDT Encounter for supervision of normal first in first trimester from Last 3 Months or Most Recently Relevant to Health Maintenance Results * SONOGRAM - COMPLETE (11/03/2024 8:10 AM CDT) Only the most recent of2 resultswithin the time period is included. Linked Results Indication ======== Heterozygous Factor V Leiden, Felicity's thyroiditis , Prior gHTN, Obesity class I Maternal SMA carrier, FOB is negative History ====== OB History 3. Para 1 T1A1L1 1. live 2020. Gest. age 37 w + 0 d. Sex of child: female. Details: , gHTN 2. miscarriage 2021 Lab Tests Test Date Result NIPT Low risk, Female Maternal Assessment Physical Exam Height 175 cm, 5 ft 9 in. Weight 108 kg, 238 lb. Initial weight 101 kg, 222 lb. BMI 35.15 kg/m . Initial BMI 32.78 kg/m . Weight gain 7 kg, 16 lb Method ====== Transabdominal ultrasound. View: Sufficient ========= Helm . Number of fetuses: 1 Dating ====== Date Details Gest. age GALE LMP 03/11/2024 33 w + 6 d 12/16/2024 U/S 11/03/2024 based upon AC, BPD, Femur, HC 33 w + 4 d 12/18/2024 Assigned dating based on the LMP, selected on 07/02/2024 33 w + 6 d 12/16/2024 General Evaluation Cardiac activity present. FHR 157 bpm. Presentation: cephalic Placenta: Placental site: anterior Amniotic fluid: Amount of AF: normal. MVP 5.7 cm. PARK 15.0 cm. Q1 2.2 cm, Q2 4.3 cm, Q3 5.7 cm, Q4 2.8 cm Biometry BPD 83.6 mm 33w 5d 40% Hadlock HC 302.0 mm 33w 4d 11% Hadlock AC 291.1 mm 33w 1d 31% Hadlock Femur 65.2 mm 33w 4d 33% Hadlock Humerus 57.1 mm 33w 1d 40% Ivett HC / AC 1.04 -/- Hadlock Weight Calculation: EFW 2,175 g 29% Hadlock EFW (lb,oz) 4 lb 13 oz EFW by Hadlock ([id number]) appropriate Growth Overview Exam date GA BPD (mm) HC (mm) AC (mm) FL (mm) HL (mm) EFW (g) 07/02/2024 16w 1d 35.1 78% 129.3 62% 110.1 75% 23 75% 22.8 84% 172 85% 07/27/2024 19w 5d 45.2 48% 172 45% 154.8 75% 30.9 37% 31.9 85% 332 67% 08/24/2024 23w 5d 58.9 58% 215.7 29% 204.7 82% 44.1 64% 41.8 84% 721 83% 10/06/2024 29w 6d 73.7 29% 268.3 7% 262.5 61% 56.7 32% 1494 42% 11/03/2024 33w 6d 83.6 40% 302 11% 291.1 31% 65.2 33% 57.1 40% 2175 29% Anatomy The following structures appear normal: Heart / Thorax 4-chamber view. Abdomen Stomach. Kidneys. Bladder. sex: female. Impression ========= Single, live, intrauterine at 33w 6d The size & amniotic fluid volume are normal No malformations were seen within the limitations of ultrasound Follow-up ======== Please see separate [facility] note Coding ====== Procedures [id number]: US Preg Uterus Follow Up [facility] [employer] PACS Anatomical Region Laterality Modality Other 11/03/2024 8:10 AM CDT Massimo Lino MD [facility] ORDERABLES Edited Result - Final * TSH (11/01/2024 1:49 PM CDT) Only the most recent of2 resultswithin the time period is included. TSH 2.15 mIU/L [facility] Comment: Reference Range > or = 20 Years 0.40-4.50 Ranges First trimester 0.26-2.66 Second trimester 0.55-2.73 Third trimester 0.43-2.91 Test Performed at: [place] [address] PANCHITO BABB MD 11/01/2024 1:49 PM CDT 11/01/2024 1:50 PM CDT Mare ReideFuelDepotoeching [facility] - CHEMISTRY ORD ERABLES Final Result Performing Organization Address [facility] de Phone Number [facility] [id number] [place] [address] * T4 FREE (11/01/2024 1:49 PM CDT) Only the most recent of2 resultswithin the time period is included. T4 Free 0.8 0.8 - 1.8 ng/dL [facility] Comment: Test Performed at: [facility] [address] PANCHITO BABB MD 11/01/2024 1:49 PM CDT 11/01/2024 1:50 PM CDT Mare Solisoeching [facility] - CHEMISTRY ORD ERABLES Final Result Performing Organization Address [facility] Co de Phone Number [facility] [id number] [place] [address] * PAP IG RFLX HPV HR ALL PATH (10/09/2020 11:03 AM CDT) Diagnosis [facility] ACCOUNT BILL Comment:NEGATIVE FOR INTRAEP ITHELIAL LESION OR MALIGNANCY. Specimen Adequacy [facility] ACCOUNT BILL Comment: Satisfactory for evaluation. Endocervical and/or squamous metaplastic cells (endocervical component) are present. Clinician Provided ICD10 [facility] ACCOUNT BILL Comment:Z01.419 Performed by [facility] ACCOUNT BILL Comment:Isela Shelton Cytot echnologist (ASCP) Comment . [facility] ACCOUNT BILL Note [facility] ACCOUNT BILL Comment: The Pap smear is a screening test designed to aid in the detection of premalignant and malignant conditions of the uterine cervix. It is not a diagnostic procedure and should not be used as the sole means of detecting cervical cancer. Both false-positive and false-negative reports do occur. . IGLBP CPT Code Automation [facility] ACCOUNT BILL Comment: This liquid based ThinPrep(R) pap test was screened with the use of an image guided system. Note [facility] ACCOUNT BILL Comment: The HPV DNA reflex criteria were not met with this specimen result therefore, no HPV testing was performed. . Pathology/Cytolog y ENTIRE ENDOCERVIX / Unknown 10/09/2020 11:03 AM CDT 10/09/2020 Narrative [facility] ACCOUNT BILL - 10/10/2020 1:08 PM CDT No. of containers..01 ThinPrep Vial Resulting Agency Comment Lab Testing performed at: [address] [id number] Jing Vaughan MD LAB - PATHOLOGY/CYTOLOGY OR DERABLES Final Result [facility] ACCOUNT BILL [address] [place] [address] * CULTURE STREP B (07/13/2020 4:36 PM ENGINEERING SUPERVISOR) Strep Group B Culture Negative Negative [facility] ACCOUNT BILL Comment: Centers for Disease Control and Prevention (CDC) and [place] [employer] of Obstetricians and Gynecologists (ACOG) guidelines for prevention of group B streptococcal (GBS) disease specify co-collection of a vaginal and rectal swab specimen to maximize sensitivity of GBS detection. Per the CDC and ACOG, swabbing both the lower vagina and rectum substantially increases the yield of detection compared with sampling the vagina alone. . Penicillin G, ampicillin, or cefazolin are indicated for intrapartum prophylaxis of GBS colonization. Reflex susceptibility testing should be performed prior to use of clindamycin only on GBS isolates from penicillin-allergic women who are considered a high risk for anaphylaxis. Treatment with vancomycin without additional testing is warranted if resistance to clindamycin is noted. Microbiology MISCELLANEOUS SAMPLES / Unknown 07/13/2020 4:36 PM ENGINEERING SUPERVISOR 07/14/2020 Narrative Resulting Agency Comment Lab Testing performed at: [facility] [address] [facility] [phone] Jing Vaughan MD LAB - MICROBIOLOGY ORDERABL ES Final Result Performing Organization Address [facility] Co de Phone Number [facility] ACCOUNT BILL [address] [place] [address] * HIV-1 HIV-2 ANTIBODY + HIV P24 AG PANEL (05/16/2020 10:37 AM ENGINEERING SUPERVISOR) [facility] HIV Screen 4th Generation w Reflex Non Reactive Non Reactive [facility] ACCOUNT BILL Blood BLOOD SPECIMEN / Unknown 05/16/2020 10:37 AM ENGINEERING SUPERVISOR 05/16/2020 Narrative Resulting Agency Comment Lab Testing performed at: [facility] [address] [facility] [place] [phone] Jing Vaughan MD LAB - CHEMISTRY ORDERABLES Final Result Performing Organization Address [facility] de Phone Number [facility] ACCOUNT BILL [address] [place] [address] * GLUCOSE CHALLENGE (05/16/2020 10:37 AM ENGINEERING SUPERVISOR) [facility] GTT 1Hr 131 65 - 139 mg/dL [facility] ACCOUNT BILL Comment: According to ADA, a glucose threshold of >139 mg/dL after 50-gram load identifies approximately 80% of women with gestational diabetes mellitus, while the sensitivity is further increased to approximately 90% by a threshold of >129 mg/dL. Blood BLOOD SPECIMEN / Unknown 05/16/2020 10:37 AM ENGINEERING SUPERVISOR 05/16/2020 Narrative Resulting Agency Comment Lab Testing performed at: [facility] [place] [address] [facility] [phone] Jing Vaughan MD LAB - CHEMISTRY ORDERABLES Final Result Performing Organization Address [facility] Co de Phone Number [facility] ACCOUNT BILL [address] [place] [address] * HEPATITIS C ANTIBODY (01/05/2020 10:58 AM CDT) [facility] Hepatitis C Antibody <0.1 0.0 - 0.9 s/co ratio [facility] ACCOUNT BILL Comment: Negative: < 0.8 Indeterminate: 0.8 - 0.9 Positive: > 0.9 . The CDC recommends that a positive HCV antibody result be followed up with a HCV Nucleic Acid Amplification test (071890). Blood BLOOD SPECIMEN / Unknown 01/05/2020 10:58 AM CDT 01/05/2020 Narrative Resulting Agency Comment [facility]: [facility] [address] [facility] [phone] us Jing Vaughan MD LAB - CHEMISTRY ORDERABLES Final Result [facility] ACCOUNT BILL [address] [place] [address] from Last 3 Months or Most Recently Relevant to Health Maintenance Insurance [employer] Advance Directives * Full Code (Latest Code Status on File) Date Activated Date Inactivated Comments 07/26/2020 6:11 PM 07/28/2020 4:57 PM
--- OUTSIDE RECORDS SUMMARY | 2024-11-25 13:25 | XMS_ITS | Clinical Summary ---
Author Organization [facility] Address [address] [facility] [address] [place] [address] Phone Care Team Providers Care Noise Tester Name Role Phone Jonathan Linton MD Primary Care Provider Allison Leal MD Unavailable [phone] Allergies No known active allergies Medications VIT [...] 2.73 09/30/2024 FREET4 0.61 (L) 09/30/2024 From [facility] labs on 02/2024 patient had elevated thyroglobulin [...] Resolved Date Factor V Leiden mutation 03/03/2024 Encounters Date Type Department Care Team Description 10/13/2024 Telephone [facility] Primary Care at [address] [address] Jonathan Linton MD Medical Question/Miscellaneo us 10/04/2024 Results Follow-Up [facility] Primary Care at [address] [address] Jonathan Linton MD Hepatitis C antibody Blood, Thyroid peroxidase antibody (TPO), TSH receptor antibody, Additional followed-up results: 8 09/30/2024 5:28 PM CDT - 09/30/2024 11:59 PM CDT Hospital Encounter [address] [address] Encounter for hepatitis C screening test for low risk patient; Cruz thyroiditis; Multiple thyroid nodules; Obesity (BMI 30-39.9) Discharge Disposition: Discharge to home or self care 09/30/2024 9:30 AM CDT Lab [facility] at [address] [address] Cruz thyroiditis (Primary Dx) 09/30/2024 8:30 AM CDT Office Visit [facility] Primary Care at [address] [address] Jonathan Linton MD Multiple thyroid nodules (Primary Dx); Cruz thyroiditis; History of gestational hypertension; Obesity (BMI 30-39.9); Encounter for hepatitis C screening test for low risk patient; with 29 completed weeks gestation from Last 3 Months Immunizations Immunization Administration Dates Next Due HPV, [...] Unspecified 02/18/2017 PPD TEST 04/16/2019 Tdap 09/21/2024,,10/02/2016,11/21 Surgical History Surgery Date Site/Laterality Comments OVARIAN CYST REMOVAL WISDOM TOOTH EXTRACTION Bilateral Medical History Medical History Date Comments Thyroid disease Social History Tobacco Use Types Packs/Day Years [...] on file Sexual Orientation Not on file Obstetrics History Para Term AB IAB SAB Ectopic Multiple Livin g Live Births 1 Date Outcome GA Total Labor Labor/2nd/3rd Weight Sex Type Anes PTL Gely A1 A5 Name Clin Current Last Filed Vital Signs Vital Sign Reading [...] 09/30/2024 8:39 AM CDT Plan of Treatment Health Maintenance Due Date Last Done Comments Cervical Cancer Screening 1993 Varicella Vaccines (1 of 2 - 13+ 2-dose series) 2006 Regular Well Visit/Exam 18-64 10/23/2011 Depression Screening 09/30/2025 09/30/2024 DTaP/Tdap/Td Vaccine (5 - Td or Tdap) 09/21/2034 09/21/2024, 05/16/2020, 10/02/2016, Additional history exists HPV Vaccines Completed 07/31/2007, 01/2007, 11/21/2006 Hepatitis B Screening Completed 03/16/2016 , 10/12/2015, 09/14/2015 Influenza Vaccine Completed 04/09/2024, , 03/18/2022, Additional history exists Covid-19 Vaccine Completed 09/21/2024, 03/2021, 06/28/2020 Hepatitis C Screening Completed 09/30/2024 Pneumococcal vaccine <65 Aged Out No longer eligible based on patient's age to complete this topic Procedures Procedure Name Priority Date/Time Associated Diagnosis [...] Results * eGFR (09/30/2024 12:00 PM CDT) Pathologist [facility] eGFR >90 >=60 mL/min/1. 73 m2 Comment: [...] MD LAB BLOOD ORDERABLES Fi nal Result [facility] [address] [place] [address] * (ABNORMAL) Differential, auto (09/30/2024 12:00 PM CDT) Pathologist [facility] Neutrophil abs 7.8(H) 1.5 - 6.5 K/cumm Imm gran abs 0.2(H) 0.0 - 0.1 K/cumm [facility] Lymphocyte abs 1.8 0.8 - 3.3 K/cumm [facility] Monocyte abs 0.9(H) 0.2 - 0.8 K/cumm [facility] Eosinophil abs 0.2 0.0 - 0.5 K/cumm [facility] Basophil abs 0.0 0.0 - 0.1 K/cumm [facility] Neutrophil pct 71.8 % [facility] Comment: Interpretive Data Percent cell count reference ranges are not reported, since discordance with absolute values may lead to misinterpretation of CBC data. Current Interpretive Data was last revised on 2017. Imm gran pct 1.4 % [facility] Comment: Interpretive Data Percent cell count reference ranges are not reported, since discordance with absolute values may lead to misinterpretation of CBC data. Current Interpretive Data was last revised on 2017. Lymphocyte pct 16.6 % [facility] Comment: Interpretive Data Percent cell count reference ranges are not reported, since discordance with absolute values may lead to misinterpretation of CBC data. Current Interpretive Data was last revised on 2017. Monocyte pct 8.1 % [facility] Comment: Interpretive Data Percent cell count reference ranges are not reported, since discordance with absolute values may lead to misinterpretation of CBC data. Current Interpretive Data was last revised on 2017. Eosinophil pct 1.7 % [facility] Comment: Interpretive Data Percent cell count reference ranges are not reported, since discordance with absolute values may lead to misinterpretation of CBC data. Current Interpretive Data was last revised on 2017. Basophil pct 0.4 % [facility] Comment: Interpretive Data Percent cell count reference ranges are not reported, since discordance with absolute values may lead to misinterpretation of CBC data. Current Interpretive Data was last revised on 2017. Blood 09/30/2024 12:0 0 PM CDT 09/30/2024 5:48 PM CDT Jonathan Linton MD LAB BLOOD ORDERABLES Fi nal Result [facility] [address] [address] [place] [address] * TSH receptor antibody (09/30/2024 12:00 PM CDT) TSH receptor ab <1.10 0.00 - 1.75 IUnits/L [place] [facility] Comment: ADDITIONAL INFORMATION At a decision limit of 1.75 IU/L, this assay has 97% sensitivity and 99% specificity for detection of Graves' disease. In healthy individuals and in patients with thyroid disease without diagnosis of Graves' disease, the upper limit of anti-TSHR values are 1.22 IU/L and 1.58 IU/L, respectively (97.5th percentiles). Test Performed by: [facility] [address] [place] [address] Senior Group Manager: Angelica Art Ph.D.; CLIA# [id number] Blood 09/30/2024 12:0 0 PM CDT 09/30/2024 5:48 PM CDT us Jonathan Linton MD LAB [place]LOOD [place] [address] [address] [place] [address] [place] [facility] * (ABNORMAL) CBC with auto differential (09/30/2024 12:00 PM CDT) WBC 10.9(H) 3.8 - 9.9 K/cumm Hgb 12.1 11.9 - 15.5 g/dL [facility] Hct 39.2 35.6 - 45.5 % [facility] Plt 211 150 - 400 K/cumm [facility] MPV 11.2 9.1 - 12.3 fL [facility] RBC 4.05 3.90 - 5.20 M/cumm [facility] MCV 96.8(H) 81.3 - 96.4 fL [facility] MCH 29.9 27.1 - 33.3 pg [facility] MCHC 30.9(L) 32.3 - 35.7 g/dL [facility] RDW CV 13.9 11.1 - 14.9 % [facility] RDW SD 49.3(H) 35.7 - 48.1 fL [facility] NRBC abs 0.00 0.00 - 0.01 K/cumm [facility] Blood 09/30/2024 12:0 0 PM CDT 09/30/2024 5:48 PM CDT Jonathan Linton MD LAB BLOOD ORDERABLES Fi nal Result Performing Organization Address [facility] Co de Phone Number [facility]ANG ROMAN [address] [address] [facility] [employer] [address] * Hepatitis C antibody Blood (09/30/2024 12:00 [...] RAL ORDERABLES Final Result Performing Organization Address [facility] Co de Phone Number MELISSAJESSICA ROMAN [address] [employer] [place] [address] * Thyroid peroxidase antibody (TPO) (09/30/2024 12:00 PM CDT) Anti Thyroid Peroxidase <30 <=34 IUnits/mL Comment: ATPO Interpretive Data Results may be up to 28% higher in patients receiving Itraconazole. Current interpretive data was last revised 2020. Testing performed by: [facility], [address] [facility], [place]., [address] Blood 09/30/2024 12:0 0 PM CDT 10/01/2024 10:06 AM CDT Jonathan Linton MD LAB BLOOD ORDERABLES Fi nal Result Performing Organization Address [facility] Co de Phone Number CHANG ROMAN [address] [facility] [employer] [place] [address] * Thyroid stimulating immunoglobulin (09/30/2024 12:00 PM CDT) TSIG <1.0 <=1.3 [place] [facility] Comment: Test Performed by: [facility] [address] [place] [address] Senior Group Manager: Angelica Art Ph.D.; CLIA# [id number] Blood 09/30/2024 12:0 0 PM CDT 09/30/2024 5:48 PM CDT Jonathan Linton MD LAB BLOOD ORDERABLES Fi nal Result [facility] ROMAN [address] [address] [facility] [place] [place] [address] [facility] * T3, free (09/30/2024 12:00 PM CDT) Pathologist [facility] Free T3 2.8 2.0 - 4.4 pg/mL Blood 09/30/2024 12:0 0 PM CDT 09/30/2024 5:48 PM CDT Jonathan Linton MD LAB BLOOD ORDERABLES Fi nal Result Performing Organization Address City/[facility]/ZIP Co de Phone Number CHANG JESSIE [address] [place] [address] * TSH (09/30/2024 12:00 PM CDT) Pathologist [facility] Thyroid Stimulating Hormone 2.73 0.30 - 4.20 mcIUnit/mL Blood 09/30/2024 12:0 0 PM CDT 09/30/2024 5:48 PM CDT Jonathan Linton MD LAB BLOOD ORDERABLES Fi nal Result [facility] [address] [facility] [employer] [place] [address] * (ABNORMAL) T4, free (09/30/2024 12:00 PM CDT) Free T4 0.61(L) 0.90 - 1.70 ng/dL Blood 09/30/2024 12:0 0 PM CDT 09/30/2024 5:48 PM CDT Jonathan Linton MD LAB BLOOD ORDERABLES Fi nal Result [facility] [address] [place] [address] * (ABNORMAL) Lipid panel (09/30/2024 12:00 PM [...] on 2018. Triglycerides 147 <=149 mg/dL [facility] Comment: Interpretive Data Ages < or = [...] on 2018. HDL 101 >=40 mg/dL [facility] Comment: Interpretive Data Ages < or = [...] 2018. LDL, calculated 102 <=129 mg/dL [facility] ROM[facility] Comment: Interpretive Data Ages < or = [...] Quirino Hoover et al. RAFAEL Cardiol. 2020 November 04;5(5):540-548. doi: 10.1001/jamacardio.2020.0013 Current Interpretive Data was last revised on 2024. Non-HDL Cholesterol 127 mg/dL [facility] ROMAN Comment: Interpretive Data Ages < or = [...] last revised on 2018. Chol/HDL ratio 2 [facility] Blood 09/30/2024 12:0 0 PM CDT 09/30/2024 5:48 PM CDT Narrative [facility] - 09/30/2024 6:31 PM CDT Has the patient been fasting for 8 hours or more?->No us Jonathan Linton MD LAB BLOOD ORDERABLES Fi nal Result [facility] [address] [address] [place] [address] * (ABNORMAL) Comprehensive metabolic panel (09/30/2024 12:00 PM CDT) Sodium 138 135 - 145 mmol/L Potassium, pl 4.4 3.3 - 4.9 mmol/L [facility] Chloride 106 97 - 110 mmol/L [facility] CO2 24 22 - 32 mmol/L [facility] Anion gap 8 2 - 15 mmol/L [facility] BUN 7 6 - 25 mg/dL [facility] Creatinine 0.52(L) 0.60 - 1.10 mg/dL [facility] Glucose 72 70 - 199 mg/dL [facility] Comment: Interpretive Data Fasting glucose >/= 126 [...] classification and Diagnosis of Diabetes Diabetes Care 202; 46: S19-S40. Current interpretive data was last [...] CDT Jonathan Linton MD [place] [address] [address] [place] [address] from Last 3 Months Insurance [employer] [facility] [employer] AETNA SIG [id number] Care Teams Noise Tester Relationship Specialty Start Date End Date Jonathan Linton MD PCP - General Family Medicine 09/30/24 Allison Leal MD [address] [place] [address] Obstetrics and Gynecology 09/30/24
--- OUTSIDE RECORDS SUMMARY | 2024-11-25 13:25 | XMS_ITS | Continuity of Care Document ---
Author Organization [facility] Address [address] [place] [address] [place] [address] Phone Care Team Providers Care Impregnation Operator Name Role Phone Hilario Barrera MD Unavailable Unavailable Allergies, Adverse Reactions, Alerts Substance Reaction Status Criticality No Known Allergies Active No Inform ation Procedures Procedure Date OFFICE/OUTPATIENT VISIT, EST PREV VISIT, NEW, AGE 18-39 OFFICE/OUTPATIENT VISIT, [facility] Advance Directives Directive Yes / No Effective Date File Name No Information Encounters Encounter Description Practice Location Reason(s) For Visit Diagnoses Date Provider Providers Copied on Encounter [facility], [address] [place], [id number], [place] tel:[phone] [facility] No Information 5 Bruce Rich. [address], [place], [place], [address] , [place]. tel:[phone] OFFICE/OUTPA TIENT VISIT, EST [facility], [address] [place], [id number], [place] tel:[phone] [facility] thyroid1 (chief complaint) Felicity's thyroiditisThyroid noduleFactor V Leiden mutation 4 Bruce Rich. [address], [address], [place], [place], [id number] , [place]. tel:[phone] PREV VISIT, NEW, AGE 18-39 [facility], [address], [place], [place], [id number], [place] tel:[phone] [facility] Medicine physical (chief complaint) Encounter for general adult medical exam w abnormal findingsThyroid noduleFactor V Leiden mutation 4 Bruce Rich. [address], [address], [place], [place], [address] , [place]. [phone] Family History Family Member Type Diagnosis Age At Onset Mother Problem factor V leiden Brother Problem Alive and well Father Problem sick sinus syndrome Payers Payer name Insurance type Covered democrat ID Authoriza tion(s) No Information Social History Type Description Quantity Date Captured Comments Alcohol Use Details Unknown Caffeine Use Details Unknown Tobacco Use Status No Information Smoking Status No Information Sex Female Chief Complaint And Reason For Visit No Information Plan Of Treatment Date Type Action Status Referral Ordered: US THYROID ordered History Of Present Illness Encounter Date Complaint History Of Prese nt Illness thyroid1 Pt has history o f benign thyroid nodule Pt denies any dysphagia or neck pain. Pt denies any fatigue or weight gain. Pt has normal TSH. pt does have elevated TPO and thyroglobulin. pt had ultrasound done which showed multinodular goiter. physical Pt needs annual physical. Pt has heterozygous factor V leiden and she denies any history of clotting Pt denies any history of recurrent miscarriage pt is not on any anti coagulant. Pt has history of enlarge thyroid with thyroid cyst. Pt denies any dysphagia or neck pain Pt has history of benign ultrasound needle aspiratory biopsy of the thyroid nodule in the past Pt denies any weight gain or loss Instructions Date Instruction Additional Infor mation No Information Assessments Type Assessment Date No Information
[2024-11-25] MEDS: LACTATED RINGERS 1,000 ML 999 ML IV CONT (13:50)
--- NOTE | 2024-11-25 13:53 | OBADM ---
This patient, Jacinda Ulloa, admitted to the OB room Labor/Delivery/Recovery 105 for observation. Patient/family oriented to hospital policies and general routines including ID bracelet, bed and alarms, visiting hours, pain management, procedures, bathroom and other care routines, personal items, smoking policy, room service/diet, and visiting hours. Patient/Family are encouraged to report perceived risks to care and to ask questions if they do not understand what they are told or what they should do.
[2024-11-25 19:46] LABS: Add Urine Microscopic? YES; Appearance Urine Clear (Clear); Bacteria Urine Rare /hpf; Bilirubin Urine Negative (Negative); Blood Urine Negative (Negative); Color Urine Yellow (Yellow); Glucose Urine UA Negative (Negative); Ketones Urine 3+ mg/dL (Negative); Leukocyte Esterase Ur Trace LEU/UL (Negative); Nitrate Urine Negative (Negative); Non Pathogenic Casts 0-2; Protein Urine Negative (Negative); RBC Urine 0-2 /hpf (0-2); Specific Grav Ur 1.012 (1.001-1.035); Squamous Epithelial Cell Urine None Seen /hpf (Few); Urobilinogen Urine 0.2 mg/dL (<2.0); WBC Urine 0-5 /hpf (0-3)
--- NOTE | 2024-11-26 07:24 | PM.OBTRLD ---
OB - Triage/Final Diagnosis Visit Information Comments/Additional reasons for admission: I have assessed the risk for this patient, Jacinda Ulloa, and determined that she would benefit from observation care. Evaluation Laboratory results: Laboratory Tests 11/25/24 19:36 Urine Color Yellow Urine Appearance Clear Urine pH 7.0 Ur Specific [place] 1.012 Urine Protein Negative Urine Glucose (UA) Negative Urine Ketones 3+ H Ur Blood (Man) Negative Urine Nitrate Negative Urine Bilirubin Negative Urine Urobilinogen 0.2 Leukocyte Esterase Rfl Trace H Urine RBC 0-2 Urine WBC 0-5 Ur Squamous Epith Cells None seen Urine Bacteria Rare Urine Casts 0-2 Vital signs: Vital Signs - 24 hr 11/25/24 13:21 11/25/24 13:26 11/25/24 13:31 Pulse Rate Blood Pressure Pulse Oximetry 100 100 98 11/25/24 13:36 11/25/24 13:41 11/25/24 13:46 Pulse Rate Blood Pressure Pulse Oximetry 99 98 99 11/25/24 13:51 11/25/24 13:56 11/25/24 14:01 Pulse Rate Blood Pressure Pulse Oximetry 98 98 99 11/25/24 15:45 11/25/24 15:50 11/25/24 15:55 Pulse Rate Blood Pressure Pulse Oximetry 98 100 100 11/25/24 16:00 11/25/24 16:01 11/25/24 16:06 Pulse Rate Blood Pressure Pulse Oximetry 100 100 98 11/25/24 16:11 11/25/24 16:16 11/25/24 16:21 Pulse Rate Blood Pressure Pulse Oximetry 99 97 99 11/25/24 16:26 11/25/24 16:31 11/25/24 16:35 Pulse Rate Blood Pressure Pulse Oximetry 99 99 98 11/25/24 16:40 11/25/24 16:45 11/25/24 16:50 Pulse Rate Blood Pressure Pulse Oximetry 100 100 99 11/25/24 16:55 11/25/24 17:00 11/25/24 17:05 Pulse Rate Blood Pressure Pulse Oximetry 100 100 99 11/25/24 17:10 11/25/24 17:15 11/25/24 17:20 Pulse Rate Blood Pressure Pulse Oximetry 99 98 98 11/25/24 17:25 11/25/24 17:30 11/25/24 17:35 Pulse Rate Blood Pressure Pulse Oximetry 99 98 98 11/25/24 17:40 11/25/24 17:45 11/25/24 17:50 Pulse Rate Blood Pressure Pulse Oximetry 98 100 100 11/25/24 17:55 11/25/24 18:00 11/25/24 18:05 Pulse Rate Blood Pressure Pulse Oximetry 100 100 99 11/25/24 18:10 11/25/24 18:15 11/25/24 18:17 Pulse Rate Blood Pressure Pulse Oximetry 100 99 100 11/25/24 18:22 11/25/24 18:27 11/25/24 18:32 Pulse Rate Blood Pressure Pulse Oximetry 98 98 100 11/25/24 18:37 11/25/24 18:42 11/25/24 18:51 Pulse Rate Blood Pressure Pulse Oximetry 99 99 98 11/25/24 18:53 11/25/24 18:56 11/25/24 19:01 Pulse Rate 77 Blood Pressure 104/49 L Pulse Oximetry 98 98 11/25/24 19:06 11/25/24 19:11 11/25/24 19:16 Pulse Rate Blood Pressure Pulse Oximetry 96 97 97 11/25/24 19:21 11/25/24 19:26 11/25/24 19:31 Pulse Rate Blood Pressure Pulse Oximetry 96 97 96 11/25/24 19:36 11/25/24 19:41 11/25/24 19:46 Pulse Rate Blood Pressure Pulse Oximetry 97 97 98 Final Diagnosis (1) Uterine contractions: Code(s): O47.9 - False labor, unspecified Status: Acute
== END 2024-11-25 19:58 | disposition home or self-care (01) ==
PROVIDERS: Admitting Provider Obstetrics & Gynecology; Visit Provider Obstetrics & Gynecology
DX: O47.1 False labor at or after 37 completed weeks of gestation (principal); Z3A.37 37 weeks gestation of pregnancy
CPT/HCPCS: 76819; 81001; G0378; G0379; J7120

== ENCOUNTER 2024-12-05 22:58 | Inpatient (IN) | payer OTHER, SELFPAY ==
[2024-12-06] VITALS (55 sets, daily range): BP systolic 96–149; BP diastolic 45–89; PULSE 60–111; RESP 18; TEMP 36.6–37; O2SAT 97–100; BMI 37.4
--- OUTSIDE RECORDS SUMMARY | 2024-12-06 01:41 | XMS_ITS | Continuity of Care Document ---
Author Organization [facility] Address [address] [place] [address] [place] [address] Phone Care Team Providers Care Corrosion Technician Name Role Phone Hilario Barrera MD Unavailable Unavailable Allergies, Adverse Reactions, Alerts Substance Reaction Status Criticality No Known Allergies Active No Inform ation Procedures Procedure Date OFFICE/OUTPATIENT VISIT, EST PREV VISIT, NEW, AGE 18-39 OFFICE/OUTPATIENT VISIT, [facility] Advance Directives Directive Yes / No Effective Date File Name No Information Encounters Encounter Description Practice Location Reason(s) For Visit Diagnoses Date Provider Providers Copied on Encounter [facility], [address] [place], [id number], [place] tel:[phone] [facility] No Information 5 Bruce Rich. [address], [place], [place], [address] , [place]. tel:[phone] OFFICE/OUTPA TIENT VISIT, EST [facility], [address] [place], [address], [place] tel:[phone] [facility] thyroid1 (chief complaint) Felicity's thyroiditisThyroid noduleFactor V Leiden mutation 4 Bruce Rich. [address], [place], [place], [id number] , [place]. tel:[phone] PREV VISIT, NEW, AGE 18-39 [facility], [address], [place], [place], [address], [place] tel:[phone] [facility] Medicine physical (chief complaint) Encounter for general adult medical exam w abnormal findingsThyroid noduleFactor V Leiden mutation 4 Bruce Rich. [address], [address], [place], [place], [address] , [place]. [phone] Family History Family Member Type Diagnosis Age At Onset Mother Problem factor V leiden Brother Problem Alive and well Father Problem sick sinus syndrome Payers Payer name Insurance type Covered green party ID Authoriza tion(s) No Information Social History [...]
--- OUTSIDE RECORDS SUMMARY | 2024-12-06 01:42 | XMS_ITS | Encounter Summary ---
Author Organization [facility] Address [address] [place] [address] Care Team Providers Care Farm Instructor Name Role Phone Jonathan Linton MD Primary Care Provider Allison Leal MD Unavailable [phone] Encounter Details Date Type Department Care Team (Late st Contact Info) Description 10/04/2024 Results Follow-Up [facility] Primary Care at [address] [address] Jonathan Linton MD [address] [place] [address] [address] [place] [address] Hepatitis C antibody Blood, Thyroid [...] Primary documented in this encounter Care Teams Farm Instructor Relationship Specialty Start Date End Date Jonathan Linton MD PCP - General Family Medicine 09/30/24 Allison Leal MD [address] [place] [address] Obstetrics and Gynecology 09/30/24 documented as of this encounter
--- OUTSIDE RECORDS SUMMARY | 2024-12-06 01:42 | XMS_ITS | Referral Summary ---
Author Organization [facility] Address [address] [place] [address] Phone Care Team Providers Care Scrap Preparer Name Role Phone Jonathan Linton MD Primary Care Provider Allison Leal MD Unavailable [phone] Encounters Date Type Department Care Team Description 10/13/2024 Telephone [facility] Medical [facility] Primary Care at [address] [address] Jonathan Linton MD Medical Question/Miscellaneo us 10/04/2024 Results Follow-Up [facility] Primary Care at [address] [address] Jonathan Linton MD Hepatitis C antibody Blood, Thyroid peroxidase antibody (TPO), TSH receptor antibody, Additional followed-up results: 8 09/30/2024 5:28 PM CDT - 09/30/2024 11:59 PM CDT Hospital Encounter [address] [address] Encounter for hepatitis C screening test for low risk patient; Cruz thyroiditis; Multiple thyroid nodules; Obesity (BMI 30-39.9) Discharge Disposition: Discharge to home or self care 09/30/2024 9:30 AM CDT Lab [facility] Outpatient Lab at [address] [address] Cruz thyroiditis (Primary Dx) 09/30/2024 8:30 AM CDT Office Visit [facility] Primary Care at [address] [address] Jonathan Linton MD Multiple thyroid [...] 2.73 09/30/2024 FREET4 0.61 (L) 09/30/2024 From [facility] labs on 02/2024 patient had elevated thyroglobulin [...] 8:39 AM CDT Height 175.3 cm (5' 9) 09/30/2024 8:39 AM CDT Body Mass Index [...] Linton MD LAB BLOOD ORDERABLES nal Result [facility] [address] [place] [address] * (ABNORMAL) Differential, auto (09/30/2024 12:00 PM CDT) Neutrophil abs 7.8(H) 1.5 - 6.5 K/cumm Imm gran abs 0.2(H) 0.0 - 0.1 K/cumm [facility] Lymphocyte abs 1.8 0.8 - 3.3 K/cumm [facility] Monocyte abs 0.9(H) 0.2 - 0.8 K/cumm [facility] Eosinophil abs 0.2 0.0 - 0.5 K/cumm [facility] Basophil abs 0.0 0.0 - 0.1 K/cumm [facility] Neutrophil pct 71.8 % [facility] Comment: Interpretive Data Percent cell count reference ranges are not reported, since discordance with absolute values may lead to misinterpretation of CBC data. Current Interpretive Data was last revised on 2017. Imm gran pct 1.4 % [facility] Comment: Interpretive Data Percent cell count reference ranges are not reported, since discordance with absolute values may lead to misinterpretation of CBC data. Current Interpretive Data was last revised on 2017. Lymphocyte pct 16.6 % [facility] Comment: Interpretive Data Percent cell count reference ranges are not reported, since discordance with absolute values may lead to misinterpretation of CBC data. Current Interpretive Data was last revised on 2017. Monocyte pct 8.1 % [facility] Comment: Interpretive Data Percent cell count reference ranges are not reported, since discordance with absolute values may lead to misinterpretation of CBC data. Current Interpretive Data was last revised on 2017. Eosinophil pct 1.7 % [facility] Comment: Interpretive Data Percent cell count reference ranges are not reported, since discordance with absolute values may lead to misinterpretation of CBC data. Current Interpretive Data was last revised on 2017. Basophil pct 0.4 % [facility] Comment: Interpretive Data Percent cell count reference ranges are not reported, since discordance with absolute values may lead to misinterpretation of CBC data. Current Interpretive Data was last revised on 2017. Blood 09/30/2024 12:0 0 PM CDT 09/30/2024 5:48 PM CDT Result [facility] Jonathan Linton MD LAB BLOOD ORDERABLES Fi nal Result Performing Organization Address [facility] de Phone Number [facility] [address] [employer] [place] [address] * TSH receptor antibody (09/30/2024 12:00 PM CDT) Pathologist [facility] TSH receptor ab <1.10 0.00 - 1.75 IUnits/L [facility] Lab Comment: ADDITIONAL INFORMATION At a decision limit of 1.75 IU/L, this assay has 97% sensitivity and 99% specificity for detection of Graves' disease. In healthy individuals and in patients with thyroid disease without diagnosis of Graves' disease, the upper limit of anti-TSHR values are 1.22 IU/L and 1.58 IU/L, respectively (97.5th percentiles). Test Performed by: [place] [address] Basketball Player: Angelica Art Ph.D.; CLIA# [id number] Blood 09/30/2024 12:0 0 PM CDT 09/30/2024 5:48 PM CDT Jonathan Linton MD LAB BLOOD ORDERABLES Fi nal Result Performing Organization Address [facility] Co de Phone Number MELISSAJESSICA [address] [place] [address] [facility] Lab * (ABNORMAL) CBC with auto differential (09/30/2024 12:00 PM CDT) Pathologist [facility] WBC 10.9(H) 3.8 - 9.9 K/cumm Hgb 12.1 11.9 - 15.5 g/dL [facility] Hct 39.2 35.6 - 45.5 % [facility] Plt 211 150 - 400 K/cumm [facility] MPV 11.2 9.1 - 12.[address] f[address] [facility] RBC 4.05 3.90 - 5.20 M/cumm [facility] MCV 96.8(H) 81.3 - 96.[address] [facility] MCH 29.9 27.1 - 33.[address] [facility] MCHC 30.9(L) 32.3 - 35.7 g/dL [facility] CH RDW CV 13.9 11.1 - 14.9 % [facility] CH RDW SD 49.3(H) 35.7 - 48.1 fL [facility] NRBC abs 0.00 0.00 - 0.01 K/cumm [facility] Blood 09/30/2024 12:0 0 PM CDT 09/30/2024 5:48 PM CDT Jonathan Linton MD LAB BLOOD ORDERABLES Fi nal Result Performing Organization Address [facility] de Phone Number [facility] [address] [employer] [place] [address] * Hepatitis C antibody Blood (09/30/2024 12:00 [...] RAL ORDERABLES Final Result Performing Organization Address City/[facility] Co de Phone Number CHANG ROMAN [address] [employer] [place] [address] * Thyroid peroxidase antibody (TPO) (09/30/2024 12:00 PM CDT) Anti Thyroid Peroxidase <30 <=34 IUnits/mL Comment: ATPO Interpretive Data Results may be up to 28% higher in patients receiving Itraconazole. Current interpretive data was last revised 2020. Testing performed by: [facility], [address] [place]., [address] Blood 09/30/2024 12:0 0 PM CDT 10/01/2024 10:06 AM CDT Jonathan Linton MD LAB BLOOD ORDERABLES Fi nal Result [facility] [address] [employer] [place] [address] * Thyroid stimulating immunoglobulin (09/30/2024 12:00 PM CDT) Pathologist [facility] TSIG <1.0 <=1.3 [facility] Lab Comment: Test Performed by: [place] [id number] Basketball Player: Angelica Art Ph.D.; CLIA# [id number] Blood 09/30/2024 12:0 0 PM CDT 09/30/2024 5:48 PM CDT Jonathan Linton MD LAB [place]LOOD [place] [address] [address] [facility] [place] [address] [place] ref Lab * T3, free (09/30/2024 12:00 PM CDT) Pathologist [facility] Free T3 2.8 2.0 - 4.4 pg/mL Blood 09/30/2024 12:0 0 PM CDT 09/30/2024 5:48 PM CDT Jonathan Linton MD LAB BLOOD ORDERABLES Fi nal Result Performing Organization Address [facility] Co de Phone Number CHANG ROMAN [address] [facility] [place] [address] * TSH (09/30/2024 12:00 PM CDT) Thyroid Stimulating Hormone 2.73 0.30 - 4.20 mcIUnit/mL Blood 09/30/2024 12:0 0 PM CDT 09/30/2024 5:48 PM CDT Jonathan Linton MD LAB BLOOD ORDERABLES Fi nal Result Performing Organization Address [facility] de Phone Number CHANG ROMAN [address] [facility] [place] [address] * (ABNORMAL) T4, free (09/30/2024 12:00 PM CDT) Free T4 0.61(L) 0.90 - 1.70 ng/dL Blood 09/30/2024 12:0 0 PM CDT 09/30/2024 5:48 PM CDT Jonathan Linton MD LAB BLOOD ORDERABLES Fi nal Result Performing Organization Address [facility] Co de Phone Number CHANG [address] [employer] [address] * (ABNORMAL) Lipid panel (09/30/2024 12:00 PM [...] Linton MD LAB BLOOD ORDERABLES nal Result [facility] [address] [place] [address] * (ABNORMAL) Comprehensive metabolic panel (09/30/2024 12:00 [...] Linton MD LAB BLOOD ORDERABLES nal Result [facility] [address] [place] [address] from Last 3 Months Insurance [facility] AETNA SIG [id number] Care Teams Scrap Preparer Relationship Specialty Start Date End Date Jonathan Linton MD PCP - General Family Medicine 09/30/24 Allison Leal MD [address] [place] [address] Obstetrics and Gynecology 09/30/24
--- OUTSIDE RECORDS SUMMARY | 2024-12-06 01:42 | XMS_ITS | Clinical Summary ---
Author Organization [facility] Address [address] [place] [address] Phone Care Team Providers Care Nicker Name Role Phone Jonathan Linton MD Primary Care Provider Allison Leal MD Unavailable [phone] Allergies No known active allergies Medications VIT [...] hx of benign finding on FNA in 2016, will try to request this record in [...] 2.73 09/30/2024 FREET4 0.61 (L) 09/30/2024 [facility] on 02/2024 patient had elevated thyroglobulin [...] Type Department Care Team Description 10/13/2024 Telephone [facility] Medical [facility] Primary Care at [address] [address] Jonathan Linton MD Medical Question/Miscellaneo us 10/04/2024 Results Follow-Up [facility] Primary Care at [address] [address] Jonathan Linton MD Hepatitis C antibody Blood, Thyroid peroxidase antibody (TPO), TSH receptor antibody, Additional followed-up results: 8 09/30/2024 5:28 PM CDT - 09/30/2024 11:59 PM CDT Hospital Encounter [address] [address] Encounter for hepatitis C screening test for low risk patient; Cruz thyroiditis; Multiple thyroid nodules; Obesity (BMI 30-39.9) Discharge Disposition: Discharge to home or self care 09/30/2024 9:30 AM CDT Lab [facility] Outpatient Lab at [address] [address] Cruz thyroiditis (Primary Dx) 09/30/2024 8:30 AM CDT Office Visit [facility] Primary Care at [address] [address] Jonathan Linton MD Multiple thyroid nodules (Primary [...] * eGFR (09/30/2024 12:00 PM CDT) Pathologist [facility] eGFR >90 >=60 mL/min/1. 73 m2 Comment: [...] MD LAB BLOOD ORDERABLES Fi nal Result [facility] [address] Department [place] [address] * (ABNORMAL) Differential, auto (09/30/2024 12:00 PM CDT) Pathologist [facility] Neutrophil abs 7.8(H) 1.5 - 6.5 K/cumm Imm gran abs 0.2(H) 0.0 - 0.1 K/cumm [facility] Lymphocyte abs 1.8 0.8 - 3.3 K/cumm [facility] Monocyte abs 0.9(H) 0.2 - 0.8 K/cumm [facility] Eosinophil abs 0.2 0.0 - 0.5 K/cumm [facility] Basophil abs 0.0 0.0 - 0.1 K/cumm [facility] Neutrophil pct 71.8 % [facility] Comment: Interpretive Data Percent cell count reference [...] LAB BLOOD ORDERABLES Fi nal Result MELISSAJESSICA [address] [place] [address] * TSH receptor antibody (09/30/2024 12:00 PM CDT) TSH receptor ab <1.10 0.00 - 1.75 IUnits/L [place] ref Lab Comment: ADDITIONAL INFORMATION At a decision limit of 1.75 IU/L, this assay has 97% sensitivity and 99% specificity for detection of Graves' disease. In healthy individuals and in patients with thyroid disease without diagnosis of Graves' disease, the upper limit of anti-TSHR values are 1.22 IU/L and 1.58 IU/L, respectively (97.5th percentiles). Test Performed by: [facility] [address] [place] [id number] [employer] Business Process Architect: Angelica Art Ph.D.; CLIA# [id number] Blood 09/30/2024 12:0 0 PM CDT 09/30/2024 5:48 PM CDT us Jonathan Linton MD LAB BLOOD [place] [address] [address] [facility] [place] [address] [place] ref Lab * (ABNORMAL) CBC with auto [...] ORDERABLES Fi nal Result Performing Organization Address City/[facility] Co de Phone Number CHANG ROMAN [address] [facility] [place] [address] * Hepatitis C antibody Blood (09/30/2024 12:00 [...] RAL ORDERABLES Final Result Performing Organization Address [facility] Co de Phone Number MELISSAJESSICA ROMAN [address] [employer] [place] [address] * Thyroid peroxidase antibody (TPO) (09/30/2024 12:00 PM CDT) Anti Thyroid Peroxidase <30 <=34 IUnits/mL Comment: ATPO Interpretive Data Results may be up to 28% higher in patients receiving Itraconazole. Current interpretive data was last revised 2020. Testing performed by: [facility], [address], [place]., [address] Blood 09/30/2024 12:0 0 PM CDT 10/01/2024 10:06 AM CDT Jonathan Linton MD LAB BLOOD ORDERABLES Fi nal Result Performing Organization Address City/[facility] Co de Phone Number CHANG ROMAN [address] [facility] [place] [address] * Thyroid stimulating immunoglobulin (09/30/2024 12:00 PM CDT) TSIG <1.0 <=1.3 [place] ref Lab Comment: Test Performed by: [facility] [address] [place] [address] It Business Process Architect: Angelica Art Ph.D.; CLIA# [id number] Blood 09/30/2024 12:0 0 PM CDT 09/30/2024 5:48 PM CDT Jonathan Linton MD LAB BLOOD ORDERABLES Fi nal Result [facility] [address] [facility] [place] [address] [facility] Lab * T3, free (09/30/2024 12:00 PM CDT) Pathologist [facility] Free T3 2.8 2.0 - 4.4 pg/mL Blood 09/30/2024 12:0 0 PM CDT 09/30/2024 5:48 PM CDT Jonathan Linton MD LAB BLOOD ORDERABLES Fi nal Result Performing Organization Address City/[facility]/ZIP Co de Phone Number CHANG JESSIE [address] [place] [address] * TSH (09/30/2024 12:00 PM CDT) Pathologist [facility] Thyroid Stimulating Hormone 2.73 0.30 - 4.20 mcIUnit/mL Blood 09/30/2024 12:0 0 PM CDT 09/30/2024 5:48 PM CDT Jonathan Linton MD LAB BLOOD ORDERABLES Fi nal Result [facility] [address] [address] [facility] [place] [address] * (ABNORMAL) T4, free (09/30/2024 12:00 PM CDT) Free T4 0.61(L) 0.90 - 1.70 ng/dL Blood 09/30/2024 12:0 0 PM CDT 09/30/2024 5:48 PM CDT Jonathan Linton MD LAB BLOOD ORDERABLES Fi nal Result [facility] [address] [place] [address] * (ABNORMAL) Lipid panel (09/30/2024 12:00 PM [...] Circulation 2004;110:227 3. Quirino Hoover et al. RFAAEL Cardiol. 2020 November 04;5(5):540-548. doi: 10.1001/[email or web address].2020.0013 Current [...] LAB BLOOD ORDERABLES Fi nal Result [facility] [address] [place] [address] * (ABNORMAL) Comprehensive metabolic panel (09/30/2024 12:00 [...] LAB [place]LOOD [place] [address] [address] [facility] [place] [address] from Last 3 Months Insurance [facility] [employer] AETNA SIG [id number] Care Teams Nicker Relationship Specialty Start Date End Date Jonathan Linton MD PCP - General Family Medicine 09/30/24 Allison Leal MD [address] [place] [address] Obstetrics and Gynecology 09/30/24
--- OUTSIDE RECORDS SUMMARY | 2024-12-06 01:42 | XMS_ITS | Clinical Summary ---
Author Organization [facility] [employer] Address [address] [place] [address] Care Team Providers Care Safety Lead Name Role Phone Unavailable Primary Care Provider Unavailabl e Source Comments [facility] [employer],non-owned Affiliates and Associated Physician Practices is amultiple site organization consisting of ambulatory clinics and hospital sitesin [place], [place], [place] and [place]. This disclosure is being madepursuant to the Care Everywhere program and may not contain all information available regarding this patient. Last updated 18.[employer] Allergies No known active allergies Medications * [...] Encounters Date Type Department Care Team Description 12/01/2024 9:45 AM CDT - 12/01/2024 11:59 PM CDT Hospital Encounter [facility] [address] [place] [id number] Vern Gee MD Discharge Disposition: Home or Self Care 11/03/2024 8:15 AM CDT - 11/03/2024 11:59 PM CDT Hospital Encounter [facility] [address] [place] [address] [id number] Vern Gee MD Discharge Disposition: Home or Self Care 11/01/2024 Orders Only [facility] [address] [place] [id number] Mare Rivera APRN-SR RISK MANAGEMENT CONSULTANT 10/06/2024 1:45 PM CDT - 10/06/2024 11:59 PM CDT Hospital Encounter [facility] [address] [place] [address] [id number] Vern Gee MD Discharge Disposition: Home or Self Care 09/08/2024 12:54 [address] [facility] [employer] REPLACER - 09/08/2024 11:59 [address] [facility] [employer] REPLACER Hospital Encounter [facility] [address] [place] [address] [id number] Vern Gee MD Discharge Disposition: Home or Self Care 09/08/2024 Orders Only [facility] [address] [place] [address] [phone] Mare Rivera, FLEECE TIER-SR RISK MANAGEMENT CONSULTANT from Last 3 Months Immunizations Immunization Administration Dates Next Due Covid Pfizer primary monoval ent 12+ yr 0.3mL Purple [...] Frequency of Binge Drinking Less than monthly [place] Depression Scale Answer Date Recorded Last EPDS [...] Sign Reading Time Taken Comments Blood Pressure 122/69 12/01/2024 10:16 AM CDT Pulse 86 12/01/2024 10:16 AM CDT Temperature 36.7 C (98 F) 09/21/2020 5:13 PM CDT Respiratory Rate 18 09/21/2020 5:13 PM CDT Oxygen Saturation 98% 12/01/2024 10:16 AM CDT Inhaled Oxygen Concentration - - Weight 111.6 kg (246 lb) 12/01/2024 10:16 AM CDT Height 175.3 cm (5' 9) 12/01/2024 10:16 AM CDT Body Mass Index 36.33 12/01/2024 10:16 AM CDT Plan of Treatment Health Maintenance Due Date Last Done Comments HEPATITIS B VACCINE (2 of 3 - 19+ 3-dose series) 04/13/2016 03/16/2016, 10/12/2015, 09/14/2015 PAP SMEAR 10/10/2023 10/09/2020, 02/04, 12/27/2017, Additional history exists COVID-19 VACCINE ( season) 2024 07/15/2020, 06/28/2020 DEPRESSION SCREENING 07/07/2024 OB-ONE HOUR GLUCOSE 09/09/2024 05/16/2020, 01/05/2020, 10/07/2017 OB-TDAP CURRENT 09/16/20242019, 10/02/2016, 11/21/2006 OB-GROUP B STREP SCREEN 11/11/2024 07/13/2020 DTAP/TDAP/TD VACCINES (4 - Td or Tdap) 05/16/2030 05/16/2020, 10/02/2016, 11/21/2006 ZOSTER VACCINE (1 of 2) 10/23/2043 HPV VACCINE Completed 07/31/2007, 0801/2007, 11/21/2006 HIV SCREENING Completed 05/16/2020, 01/05/2020 HEPATITIS [...] Associated Diagnosis Comments SONOGRAM - COMPLETE Routine 12/01/2024 9 :39 AM CDT History of gestational hypertension BMI 33.0-33.9,adult Obesity affecting , antepartum, unspecified obesity type (HCC) 29 weeks gestation of (HCC) Encounter for anatomic survey (HCC) Encounter for screening (HCC) SONOGRAM - COMPLETE Routine 11/03/2024 8 :10 [...] for screening (HCC) TSH 09/08/2024 1:[address] [employer] REPLACER T4 FREE 09/08/2024 1:54 [address] [employer] [employer] REPLACER PAP IG RFLX HPV HR ALL PATH Routine 10/09/2020 11:03 AM CDT Well woman exam CULTURE STREP B Routine 07/13/2020 4:36 PM [employer] [employer] REPLACER Encounter for supervision of normal first in third trimester 35 weeks gestation of GLUCOSE CHALLENGE Routine 05/16/2020 10: 37 [address] [employer] [employer] REPLACER Encounter for supervision of normal first in second trimester 27 weeks gestation of HIV-1 HIV-2 ANTIBODY + HIV P24 AG PANEL Routine 05/16/2020 10:37 [address] [facility] [employer] REPLACER Encounter for supervision of normal first in second trimester 27 weeks gestation of HEPATITIS C ANTIBODY Routine 01/05/2020 10:58 AM CDT Encounter for supervision of normal first in first trimester from Last 3 Months or Most Recently Relevant to Health Maintenance Results * SONOGRAM - COMPLETE (12/01/2024 9:39 AM CDT) Only the most recent of3 resultswithin the time period is included. Linked [...] Result NIPT Low risk, Female Maternal Assessment = Physical Exam Height 175 cm, 5 ft 9 in. Weight 112 kg, 246 lb. Initial weight 101 kg, 222 lb. BMI 36.33 kg/m . Initial BMI 32.78 kg/m . Weight gain 11 kg, 24 lb Method ====== Transabdominal ultrasound. View: Sufficient ========= Helm . Number of fetuses: 1 Dating ====== Date Details Gest. age GALE LMP 03/11/2024 37 w + 6 d 12/16/2024 U/S 12/01/2024 based upon AC, BPD, Femur, HC 36 w + 1 d 12/28/2024 Assigned dating based on the LMP, selected on 07/02/2024 37 w + 6 d 12/16/2024 General Evaluation Cardiac activity present. FHR 150 bpm. Presentation: cephalic Placenta: Placental site: anterior Amniotic fluid: Amount of AF: normal. MVP 5.3 cm. PARK 17.7 cm. Q1 4.5 cm, Q2 4.7 cm, Q3 5.3 cm, Q4 3.2 cm Biometry BPD 89.3 mm 36w 1d 25% Hadlock HC 317.1 mm 35w 5d 2% Hadlock AC 324.1 mm 36w 2d 24% Hadlock Femur 70.4 mm 36w 1d 13% Hadlock Humerus 63.1 mm 36w 4d 54% Ivett HC / AC 0.98 -/- Hadlock Weight Calculation: EFW 2,868 g 21% Hadlock EFW (lb,oz) 6 lb 5 oz EFW by Hadlock ([id number]) appropriate Growth Overview = Exam date GA BPD (mm) HC (mm) [...] 31% 65.2 33% 57.1 40% 2175 29% 12/01/2024 37w 6d 89.3 25% 317.1 2% 324.1 24% 70.4 13% 63.1 54% 2868 21% Anatomy The following structures appear normal: Abdomen Stomach. Kidneys. Bladder. sex: female. Biophysical Profile 2: breathing movements 2: Gross body movements 2: tone 2: Amniotic fluid volume 02/11 Biophysical profile score Impression ========= Single, live, intrauterine at 37w 6d The size & amniotic fluid volume are normal Biophysical profile (BPP) = 02/11 Follow-up ======== Considering the sum of her several soft risk factors, would start weekly NST+BPP next week Coding ====== Procedures 37415: [place] [address]: Biophysical Profile W/O NST EKWOK PACS Anatomical Region Laterality Modality Other 12/01/2024 9:39 AM CDT Massimo Lino MD [facility] ORDERABLES Edited Result - Final * TSH (11/01/2024 1:49 PM CDT) Only the most recent of2 resultswithin the time period is included. TSH 2.15 mIU/L [facility] Comment: Reference Range > or = 20 Years 0.40-4.50 Ranges First trimester 0.26-2.66 Second trimester 0.55-2.73 Third trimester 0.43-2.91 Test Performed at: [facility] [place] [address] PANCHITO BABB MD 11/01/2024 1:49 PM CDT 11/01/2024 1:50 PM CDT Mare Rivera FLEECE TIER-SR RISK MANAGEMENT CONSULTANT LAB - CHEMISTRY ORD ERABLES Final Result [facility] [address] [place] [address] * T4 FREE (11/01/2024 1:49 PM CDT) Only the most recent of2 resultswithin the time period is included. T4 Free 0.8 0.8 - 1.8 ng/dL [facility] Comment: Test Performed at: [facility] [address] [phone] PANCHITO BABB MD 11/01/2024 1:49 PM CDT 11/01/2024 1:50 PM CDT Mare Rivera FLEECE TIER-SR RISK MANAGEMENT CONSULTANT LAB - CHEMISTRY ORD ERABLES Final Result [facility] [address] [place] [address] * PAP IG RFLX HPV HR ALL PATH (10/09/2020 11:03 AM CDT) Diagnosis [facility] ACCOUNT BILL Comment:NEGATIVE FOR INTRAEP ITHELIAL LESION OR MALIGNANCY. Specimen Adequacy [facility] ACCOUNT BILL Comment: Satisfactory for evaluation. Endocervical and/or squamous metaplastic cells (endocervical component) are present. Clinician Provided ICD10 [facility] ACCOUNT BILL Comment:Z01.419 Performed by [facility] ACCOUNT BILL Comment:Isela Shelton Cytomoshe echnologist (ASCP) Comment . [facility] ACCOUNT BILL [...] Resulting Agency Comment Lab Testing performed at: [address] [phone] Jing Vaughan MD LAB - PATHOLOGY/CYTOLOGY OR DERABLES Final Result [facility] ACCOUNT BILL [address] [place] [address] * CULTURE STREP B (07/13/2020 4:[address] [employer] REPLACER) Strep Group B Culture Negative Negative [facility] ACCOUNT BILL Comment: Centers for Disease Control and Prevention (CDC) and [place] Congress of Obstetricians and Gynecologists (ACOG) guidelines [...] MISCELLANEOUS SAMPLES / Unknown 07/13/2020 4:[address] [facility] [employer] REPLACER 07/14/2020 Narrative Resulting Agency Comment Lab Testing performed at: [facility] [place] [id number] Jing Vaughan MD LAB - MICROBIOLOGY ORDERABL ES Final Result Performing Organization Address City/[facility] Co de Phone Number [facility] ACCOUNT BILL [address] [place] [address] * HIV-1 HIV-2 ANTIBODY + HIV P24 AG PANEL (05/16/2020 10:[address] [employer] REPLACER) [facility] HIV Screen 4th Generation w Reflex Non Reactive Non Reactive [facility] ACCOUNT BILL Blood BLOOD SPECIMEN / Unknown 05/16/2020 10:[address] [facility] [employer] REPLACER 05/16/2020 Narrative Resulting Agency Comment Lab Testing performed at: [facility] [address] [facility] [id number] Jing Vaughan MD LAB - CHEMISTRY ORDERABLES Final Result Performing Organization Address City/[facility]/ZIP Co de Phone Number [facility] ACCOUNT BILL [address] [place] [address] * GLUCOSE CHALLENGE (05/16/2020 10:37 [address] [facility] [employer] REPLACER) [facility] GTT 1Hr 131 65 - 139 mg/dL [facility] ACCOUNT BILL Comment: According to ADA, a glucose threshold of >139 mg/dL after 50-gram load identifies approximately 80% of women with gestational diabetes mellitus, while the sensitivity is further increased to approximately 90% by a threshold of >129 mg/dL. Blood BLOOD SPECIMEN / Unknown 05/16/2020 10:[address] [employer] REPLACER 05/16/2020 Narrative Resulting Agency Comment Lab Testing performed at: [facility] [id number] Jing Vaughan MD LAB - CHEMISTRY ORDERABLES Final Result Performing Organization Address City/[facility] Co de Phone Number [facility] ACCOUNT BILL [address] [place] [address] * HEPATITIS C ANTIBODY (01/05/2020 10:58 AM CDT) [facility] Hepatitis C Antibody <0.1 0.0 - 0.9 s/co ratio [facility] ACCOUNT BILL Comment: Negative: < 0.8 Indeterminate: 0.8 - 0.9 Positive: > 0.9 . The CDC recommends that a positive HCV antibody result be followed up with a HCV Nucleic Acid Amplification test (788455). Blood BLOOD SPECIMEN / Unknown 01/05/2020 10:58 AM CDT 01/05/2020 Narrative Resulting Agency Comment Lab Testing performed at: [facility] [id number] Jing Vaughan MD LAB - CHEMISTRY ORDERABLES Final Result Performing Organization Address City/[facility] de Phone Number [facility] ACCOUNT BILL [address] [place] [address] from Last 3 Months or Most Recently Relevant to Health Maintenance [place] [address] Advance Directives * Full Code (Latest Code Status on File) Date Activated Date Inactivated Comments 07/26/2020 6:11 PM 07/28/2020 4:57 PM
--- NOTE | 2024-12-06 01:53 | LDADM ---
This patient, Jacinda Ulloa, was admitted to Labor/Delivery/Recovery 104 on 12/05/24 at 22:58. Plans for labor, pain management and were discussed with patient. Patient/family oriented to hospital policies and general routines including ID bracelet, bed and alarms, visiting hours, pain management, procedures, bathroom and other care routines, personal items, smoking policy, room service/diet and guest tray routines, infant security routines, and visiting hours. Patient/Family are encouraged to report perceived risks to care and to ask questions if they do not understand what they are told or what they should do. See OBIX for further documentation.
[2024-12-06] MEDS: fentaNYL CITRATE INJ (*CRX) 100 MCG/2 ML VIAL 50 MCG IV PUSH (02:04)
[2024-12-06] MEDS: LACTATED RINGERS 1,000 ML 125 ML IV CONT ×2 (02:05→05:54)
[2024-12-06 02:13] LABS: Basophils Absolute Auto 0.1 K/mm3 (0.0-0.1); Basophils Percent Auto 0.4 % (0.2-1.2); Eosinophils Absolute Auto 0.1 K/mm3 (0-0.3); Hematocrit 34.9 % (37.0-47.0); Hemoglobin 11.8 g/dL (12.0-15.0); Immature Granulocyte Absolute 0.16 K/mm3 (0.00-0.031); Immature Granulocyte Percent A 1.3 % (0-0.5); Lymphocytes Absolute Auto 2.87 K/mm3 (0.9-3.2); Lymphocytes Percent Auto 22.7 % (18.3-44.2); Mean Corpuscular HGB Conc 33.8 g/dl (32-36); Mean Corpuscular Hemoglobin 31.2 pg (26-34); Mean Corpuscular Volume 92.3 fl (80-100); Mean Platelet Volume 10.8 fl (7.4-10.4); Monocytes Absolute Auto 1.3 K/mm3 (0.1-0.6); Monocytes Percent Auto 10.3 % (2.6-8.5); Neutrophils Absolute Auto 8.1 K/mm3 (1.3-6.7); Neutrophils Percent Auto 64.3 % (45.5-73.1); Platelet Count Result 179 k/mm3 (150-375); Red Blood Count 3.78 M/mm3 (4.2-5.4); White Blood Count 12.7 K/mm3 (4.5-10.0)
[2024-12-06 02:39] LABS: Syphilis IgG/IgM Antibody Negative (Negative)
--- NOTE | 2024-12-06 02:40 | WPDANESEPP ---
Anes - Eval Pre Procedure Procedure: Labor Epidural Date/Time: 12/06/24 02:40 Surgeon: Elvis Preop Diagnosis: Labor Pain Pre Op Diagnosis: Labor Patient Data Age: 29 Gender: F Height: 1.75 m Weight: 115 kg Last Vital Signs Pulse 67 12/06/24 02:31 BP 104/77 12/06/24 02:31 Pulse Ox 97 12/06/24 02:28 Allergies Allergy/AdvReac Type Severity Reaction Status Date / Time No Known Allergies Allergy Verified 11/30/24 09:23 Home Medications ?Medication ?Instructions ?Recorded ?Confirmed ?Type vits no.126-ferrous fum 1 tablet PO DAILY 05/03/24 11/30/24 History 28 mg iron-folic acid 800 mcg tablet (Classic ) pyridoxine (vitamin B6) 50 mg 50 mg PO DAILY 05/03/24 11/30/24 History tablet aspirin 81 mg tablet,delayed 162 mg PO DAILY 07/01/24 11/30/24 History release (Adult Low Dose Aspirin) Laboratory Tests 12/06/24 01:46 WBC 12.7 H K/mm3 (4.5-10.0) RBC 3.78 L M/mm3 (4.2-5.4) Hgb 11.8 L g/dL (12.0-15.0) Hct 34.9 L % (37.0-47.0) MCV 92.3 fl (80-100) MCH 31.2 pg (26-34) MCHC 33.8 g/dl (32-36) RDW 14.0 % (11.5-14.5) Plt Count 179 k/mm3 (150-375) MPV 10.8 H fl (7.4-10.4) Immature Gran % (Auto) 1.3 H % (0-0.5) Neut % (Auto) 64.3 % (45.5-73.1) Lymph % (Auto) 22.7 % (18.3-44.2) Eaton % (Auto) 10.3 H % (2.6-8.5) Eos % (Auto) 1.0 % (0-4.4) Baso % (Auto) 0.4 % (0.2-1.2) Lymph # (Auto) 2.87 K/mm3 (0.9-3.2) Eaton # (Auto) 1.3 H K/mm3 (0.1-0.6) Eos # (Auto) 0.1 K/mm3 (0-0.3) Baso # (Auto) 0.1 K/mm3 (0.0-0.1) Abs Immat Gran (auto) 0.16 H K/mm3 (0.00-0.031) Absolute Neuts (auto) 8.1 H K/mm3 (1.3-6.7) Absolute Nucleated RBC 0.000 K/mm3 (0.0-0.012) Nucleated RBC % 0.0 % (0.0-0.2) Syphilis IgG/IgM Ab Negative (Negative) HIV 1&2 Ab/P24 Ag 4thGn Pending : gestational age (GALE 12/16/24, ) Patient hx anesthesia problems: none Family hx anesthesia problems: none Results Review: All pre-operative results and documents have been reviewed as part of the pre-operative evaluation. [facility] Past Medical History Medical History Suppression of menses Seizure at age 2 Factor 5 Leiden mutation, heterozygous Missed Depression Anxiety Gestational hypertension Surgical History Surgical History [place] teeth extracted and gum graft History of gynecologic surgery cyst removed from ovary Family History Family History Father Irregular heart rhythm Mother Factor 5 Leiden mutation, heterozygous Other Heart attack mat aunt Social History Social History Smoking status: Never smoker Second hand tobacco smoke exposure: No Alcohol intake: current Alcohol use details: socially Substance use: never Substance use type: does not use Do You Feel Safe in your Home?: Yes Lack of Transportation: No Lack of Food: Never True Current Housing: I Have Housing Concerned About Future Housing: No Difficulty Paying Gas/Electric Bills: No Difficulty Paying for Meds: No Currently Unemployed: No Education: Master's Degree or Higher Difficulty w/ Childcare or Family Care: No Living arrangements: with family Additional living arrangements comments: spouse and daughter Occupation/Education: occupation 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
[2024-12-06 02:46] LABS: HIV 1/2 Ab P24 Ag Result Negative (Negative)
--- NOTE | 2024-12-06 04:29 | WPDHPUPDATE1 ---
History and Physical Update Update Date/Time: 12/06/24 04:29 29 yo at 38w4d who presents in labor. History and Physical has been reviewed, including an updated exam of the patient. There are NO changes in the patient's condition. Risks, benefits, and alternatives have been discussed and questions answered. Patient agrees to proceed with procedure. 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
[2024-12-06] MEDS: OXYTOCIN 30 UNITS/NS 500 ML 30 UNITS/500 ML BAG 999 UNITS IV CONT (04:30)
--- NOTE | 2024-12-06 04:31 | PM.OBPRVD ---
OB - Vaginal Delivery Note Procedure Delivery date: 12/06/24 Induction method: None Delivery monitor: External FHT and External Uterine Route of delivery: Episiotomy description: None Laceration Description: Perineal - 1st Degree Delivery repair: vicryl Specimen: No Quantitative Blood Loss (ml): 150 Anesthesia type: Epidural Disposition: Floor Complications: No immediate complications Narrative: Patient pushed for a spontaneous vaginal delivery. The fetus was delivered atraumatically and placed on the maternal abdomen. The cord was clamped and cut after 1 minute of life. The cord was double clamped and cut and a segment of cord was collected for cord gases. Cord blood was collected for blood type and Coomb's testing. The placenta delivered spontaneously and was noted to be intact. The perineum was inspected and a small first degree laceration was noted. The laceration was made hemostatic with 3-0 vicryl in a running fashion. The uterus was firm and good hemostasis was noted. Baby Date of : 12/06/24 Time of : 04:18 Gestational Age by Date: 38 gender: Female Weight (pounds): 6 Weight (ounces): 14 presentation: vertex position: Right Occiput Anterior Placenta delivery description: Spontaneous Cord Vessel Description: 3 Vessels score one minute: 8 score five minutes: 8
[2024-12-06] MEDS: OXYTOCIN 30 UNITS/NS 500 ML 30 UNITS/500 ML BAG 125 UNITS IV CONT (05:00)
--- NOTE | 2024-12-06 09:30 | PC.NURSE ---
Assistance requested with . Patient is able to latch baby independently and holds her breast well. Baby took a few minutes to focus on latching but when she did finally latch to the left breast in football hold, she was able to maintain a seal. Mom has large breasts and prefers to lean into baby rather that sit with her back supported. She is encouraged to pay attention to her back positioning so that she doesn't become sore from leaning. Mom feels that if she releases her hold on the breast that baby will lose the latch. We discussed that she may need to support the breast for baby until baby is more alert and eager at feedings. Mom is encouraged that this baby is latching better than her last child. She tried the nipple shield with her first baby without much success. Supported mom to practice feeding and latching today and to anticipate that baby may be very sleepy in her first 24 hours of life. RN updated.
[2024-12-06] MEDS: DOCUSATE SODIUM 100 MG CAPSULE PO (10:32)
[2024-12-06] MEDS: ACETAMINOPHEN 325 MG TABLET 650 MG PO ×2 (10:33→17:22)
[2024-12-06] MEDS: MULTIVIT/MIN/PREN/FOL AC/IRON TABLET 1 TAB PO (10:33)
--- NOTE | 2024-12-06 14:10 | PC.NURSE ---
Met with patient to see how is going. She states that baby was sleepy at the last feeding but she did skin to skin and then was able to get baby to latch and suckle. She mentioned to the HEAD OF MATHEMATICS that she might want some Enfamil bottles as it is her intention to breast and bottle feed. Baby was sleeping in the bassinet and mom did not mention feeding any formula when we spoke. If patient chooses to supplement we will recommend small volumes and continuing to offer the breast first at every feeding. RN updated.
--- NOTE | 2024-12-06 15:18 | OBPPTRN ---
0752-Patient transferred to post room #288 via wheelchair. Support person present. Oriented to unit, room, information board, rooming in, admission packet and security measures. Patient verbalizes understanding.
[2024-12-07] MEDS: ACETAMINOPHEN 325 MG TABLET 650 MG PO (03:22)
[2024-12-07 04:16] LABS: Hematocrit 34.6 % (37.0-47.0); Hemoglobin 11.3 g/dL (12.0-15.0)
--- NOTE | 2024-12-07 06:54 | P.PNOB_ITS ---
OB - PN: Subj Subjective Date/time seen: 12/07/24 07:13 Narrative: PPD#1 Jacinda reports doing well today. Her bleeding is director financial analysis. Her pain is controlled. She is tolerating regular diet, voiding, passing gas, and ambulating without issues. She is breast feeding. OB - PN: Obj Data Labs 12/07/24 03:26 Labs: Laboratory Results - last 24 hr 12/06/24 01:46 WBC 12.7 H RBC 3.78 L Hgb 11.8 L Hct 34.9 L MCV 92.3 MCH 31.2 MCHC 33.8 RDW 14.0 Plt Count 179 MPV 10.8 H Immature Gran % (Auto) 1.3 H Neut % (Auto) 64.3 Lymph % (Auto) 22.7 C[place] % (Auto) 10.3 H Eos % (Auto) 1.0 Baso % (Auto) 0.4 Lymph # (Auto) 2.87 [place] # (Auto) 1.3 H Eos # (Auto) 0.1 Baso # (Auto) 0.1 Abs Immat Gran (auto) 0.16 H Absolute Neuts (auto) 8.1 H Absolute Nucleated RBC 0.000 Nucleated RBC % 0.0 Syphilis IgG/IgM Ab Negative HIV 1&2 Ab/P24 Ag 4thGn Negative Blood Type O Positive Antibody Screen Negative OB - PN A/P Assessment and Plan (1) Normal vaginal delivery of second : Code(s): O80 - Encounter for full-term uncomplicated delivery Status: Acute Plan day: 1 Plan: routine care Comments: - PO pain meds - Regular diet - Ambulation and hydration encouraged - Continue putting baby to breast q2-3hr - Pelvic rest; take meds as prescribed - ER return precautions: fever, n/v/abd pain, bleeding, HTN Time Spent With Patient Time: Total time spent is greater than 50% in coordination of care (as documented) at patient's floor/unit and/or counseling patient: Review of Systems 2 Constitutional: Constitutional: Denies chills, Denies fever(s) and Denies headache(s) Eyes: Eyes: Denies change in vision ENT: Denies dizziness and Denies headache(s) Cardiovascular: Cardiovascular: Denies chest pain, Denies palpitations and Denies dyspnea Respiratory: Respiratory: Denies cough and Denies dyspnea Gastrointestinal: Gastrointestinal: Denies nausea and Denies vomiting Neurologic: Denies dizziness and Denies headache(s) Endocrine: Endocrine: Denies palpitations Exam 2 Const: General: cooperative, comfortable and no acute distress O rientation/consciousness: patient oriented x3 Resp: Effort & Inspection: normal respiratory effort Auscultation: clear to auscultation bilaterally Cardio: Rate: regular rate GI: Inspection: non-distended GI Palp: No abdominal tenderness and Yes Soft to palpation Auscultation: normal bowel sounds : Other: fundus firm Skin: General skin exam: normal color Neuro: General: patient oriented x3 Extrem: General: normal to inspection Psych: Appearance: grossly normal Affect: normal affect Attitude: c ooperative
[2024-12-07 07:25] VITALS: BP 107/70; PULSE 61; RESP 18; TEMP 37; O2SAT 99
--- NOTE | 2024-12-07 07:39 | P.DS_ITS ---
DS: Admitting Diagnosis Discharge Date 12/07/24 Admitting Diagnosis active labor at term DS: Discharge Diagnosis Discharge Diagnosis (1) Normal vaginal delivery of second : Code(s): O80 - Encounter for full-term uncomplicated delivery Status: Acute OB - DS: Summary OB Procedures : Ultrasound OB Procedures Intrapartum: Spontaneous Vag Delivery OB Procedures: : None Peripartum Data Infant Delivery Method: Natural Vaginal Laceration Description: Perineal - 1st Degree Episiotomy description: None complications: none [place] 1: Gender: Female Disposition of : home Status at Discharge Functional status at discharge: independent ambulation Overall status at discharge: patient is back to baseline Time Spent with Patient Time attestation: Total time spent providing and/or coordinating discharge services: Exam Const: General: cooperative, comfortable and no acute distress Nutritional Appearance: obese Orientation/consciousness: patient oriented x3 Resp: Effort & Inspection: normal respiratory effort Auscultation: clear to auscultation bilaterally Cardio: Rate: regular rate GI: Inspection: non-distended GI Palp: No abdominal tenderness and Yes Soft to palpation Auscultation: normal bowel sounds : Other: fundus firm Skin: General skin exam: normal color Neuro: General: patient oriented x3 Extrem: General: normal to inspection Psych: Appearance: grossly normal Affect: normal affect Attitude: cooperative DS: Data Data Completed and Pending Labs on day of discharge: Labs from last 24 hours 12/07/24 03:26 Hgb 11.3 L Hct 34.6 L Discharge Plan Discharge Attending physician on discharge: Allison Leal Discharging Clinician: Allison Leal Anticipated Discharge Date/Time: 12/07/24 10:00 Patient Disposition: Home Activity: may shower and pelvic rest Diet: regular Patient Instructions: Vaginal Delivery (DC) Patient Language: Ghanaian Stand Alone Forms: General Discharge Information Follow-up/Referrals: Massimo Lino MD [Physician] - 4 Weeks Discharge Medications: New docusate sodium 100 mg Capsule 100 mg PO BID PRN (Reason: Constipation) Qty: 90 0RF ibuprofen 600 mg Tablet 600 mg PO Q6H PRN (Reason: Cramping) Qty: 40 0RF acetaminophen 325 mg Tablet 650 mg PO Q6H PRN (Reason: Mild Pain (1-3) Or Headache) Qty: 90 0RF Continued Classic 28 mg iron- 800 mcg tablet 1 tablet PO DAILY Discontinued aspirin [Adult Low Dose Aspirin] 81 mg tablet,delayed release (DR/EC) 162 mg PO DAILY pyridoxine (vitamin B6) 50 mg tablet 50 mg PO DAILY Date of admission: 12/05/24 22:58 Primary Care Provider: PHYSICIAN,NETWORK SECURITY CONSULTANT Admitting Provider: Allison Leal Attending physician on admission: Allison Leal Condition: Stable
--- NOTE | 2024-12-07 08:30 | PC.NURSE ---
Reviewed standard discharge information with patient. She has a breast pump at home. It was her intention to give colostrum to baby and then switch to bottle feeding. Offered outpatient resources with [facility] referral and Services at [place]. Patient has the Mom/Baby Guide for further education and reference for common concerns, phone numbers, and guidance on when to call the doctor. A feeding plan was added to the ?s discharge plan. Patient states that she has no further questions or concerns regarding .???
[2024-12-07] MEDS: IBUPROFEN 600 MG TABLET PO (08:48)
[2024-12-07] MEDS: MULTIVIT/MIN/PREN/FOL AC/IRON TABLET 1 TAB PO (08:48)
[2024-12-07] MEDS: DOCUSATE SODIUM 100 MG CAPSULE PO (08:48)
--- NOTE | 2024-12-07 10:44 | WPDANLDPN2 ---
Anes-Prog Note L&D Date/Time: 12/07/24 10:44 Comfortable throughout: labor and delivery Neuraxial method: epidural Epidural/Spinal procedure site: clean & non-tender Neuro status: Neuro function grossly intact. Cardiovascular status: normal Respiratory status: normal Airway patency: baseline Mental status: baseline Post-Op hydration status: normal Vital Signs: Last Vital Signs Temp 37.0 C 12/07/24 07:25 Pulse 61 12/07/24 07:25 Resp 18 12/07/24 07:25 BP 107/70 12/07/24 07:25 Pulse Ox 99 12/07/24 07:25 O2 Del Method Room Air 12/06/24 19:49 Pain score (VAS): 2 Post-procedural complaints: none Patient feedback: Patient satisfied with anesthetic care.
--- NOTE | 2024-12-07 11:24 | PC.NURSE ---
Patient viewed the discharge video Mother & Baby Care, The First Two Weeks. Patient was given the opportunity and encouraged to ask questions. Patient verbalized understanding of information shared and has been given the mother/baby guide for home reference.
[2024-12-08 11:30] VITALS: BP 126/71; PULSE 72; RESP 18; TEMP 37.1; O2SAT 100
== END 2024-12-07 12:45 | disposition home or self-care (01) | DRG 807 ==
LOC: ANHLDR 12-06 01:40 → ANHOB2 12-06 07:55
PROVIDERS: Admitting Provider Student in an Organized Health Care Education/Training Program; Visit Provider Obstetrics & Gynecology
DX: O70.0 First degree perineal laceration during delivery (principal); Z37.0 Single live birth; Z67.91 Unspecified blood type, Rh negative; Z3A.38 38 weeks gestation of pregnancy
CPT/HCPCS: 36415; 85014; 85018; 85025; 86593; 86703; 86850; 86900; 86901; A9270; G0432; J2590; J2795; J3010; J7120

== ENCOUNTER 2025-04-01 17:11 | Emergency (ER) | payer OTHER, SELFPAY ==
--- OUTSIDE RECORDS SUMMARY | 2025-04-01 17:16 | XMS_ITS | Clinical Summary ---
Author Organization [facility] Address [address] [place] [address] Phone Care Team Providers Care Costume Technician Name Role Phone Allison Leal MD Unavailable [phone] Jonathan Linton MD Primary Care Provider Allergies No known active allergies Medications VIT 10-IRON FUM-FOLIC ORAL Take by mouth daily Active aspirin 81 mg chewable tablet Take 1 tablet (81 mg total) by mouth daily Active multivit with min-folic acid 200 mcg tablet,chewable Take by mouth Active Unithroid 25 mcg tabletIndicatio ns:Cruz thyroiditis,Mul tinodular goiter (nontoxic) Take 1 tablet (25 mcg total) by mouth rental representative before breakfast 90 tablet Active Active Problems Problem Noted Date Diagnosed [...] 2.73 09/30/2024 FREET4 0.61 (L) 09/30/2024 From [facility] labs on 02/2024 patient had elevated thyroglobulin [...] Encounters Date Type Department Care Team Description 03/14/2025 Results Follow-Up [facility] [address] [address] Liyah Sales MD TSH, T3, free, Thyroid peroxidase antibody (TPO), Free T4 by Dialysis/Algebraist 02/24/2025 3:30 PM CDT Office Visit [facility] [address] [phone] Liyah Sales MD Cruz thyroiditis (Primary Dx); Multinodular goiter (nontoxic) 01/20/2025 Orders Only [facility] at [address] [address] Jonathan Linton MD Cruz thyroiditis (Primary Dx) 01/19/2025 Telephone [facility] at [address] [address] Jonathan Linton MD Medical Question/Miscellane ous 01/19/[address] [facility] [address] [address] Liyah Sales MD STRINGER UP SOLDERING MACHINE Appt Request from Last 3 Months Immunizations Immunization Administration [...] Influenza, Unspecified 02/18/2017 PPD TEST 04/16/2019 Tdap 09/21/2024, 0,10/02/2016,11/21 Surgical History Surgery Date Site/Laterality Comments OVARIAN [...] Sign Reading Time Taken Comments Blood Pressure 124/80 02/24/2025 3:28 PM CDT Pulse 81 02/24/2025 3:28 PM CDT Temperature 36.8 C (98.2 F) 09/30/2024 8:39 AM CDT Respiratory Rate - - Oxygen Saturation 98% 09/30/2024 8:39 AM CDT Inhaled Oxygen Concentration - - Weight 105.7 kg (233 lb) 02/24/2025 3:28 PM CDT Height 175.3 cm (5' 9) 02/24/2025 3:28 PM CDT Body Mass Index 34.41 02/24/2025 3:28 PM CDT Plan of Treatment Health Maintenance Due Date Last Done Comments Cervical Cancer Screening 1993 Varicella Vaccines (1 of 2 - 13+ 2-dose series) 2006 Regular Well Visit/Exam 18-64 10/23/2011 Influenza Vaccine (#1) 2025 4, 04/01/2023, 03/18/2022, Additional history exists Depression Screening 09/30/2025 09/30/2024 DTaP/Tdap/Td Vaccine (5 - Td or Tdap) 09/21/2034 09/21/2024, 05/16/2020, 10/02/2016, Additional history exists HPV Vaccines Completed 07/31/2007, 080 01/2007, 11/21/2006 Hepatitis B Screening Completed 03/16/2016 , 10/12/2015, 09/14/2015 Covid-19 Vaccine Completed 09/21/2024, 03/2021, 06/28/2020 Hepatitis C Screening Completed 09/30/2024 Pneumococcal vaccine <65 Aged Out No longer eligible based on patient's age to complete this topic Procedures Procedure Name Priority Date/Time Associated Diagnosis Comments FREE T4 BY DIALYSIS/DEFLASH AND WASH OPERATOR Routine 03/02/2025 10:15 AM CDT Cruz thyroiditis THYROID PEROXIDASE ANTIBODY Routine 03/02/2025 10:15 AM CDT Cruz thyroiditis T3, FREE Routine 03/02/2025 10:15 AM CDT Cruz thyroiditis TSH Routine 03/02/2025 10:15 AM CDT Cruz thyroiditis HEPATITIS C ANTIBODY Routine 09/30/2024 12:00 PM CDT Encounter for hepatitis C screening test for low risk patient from Last 3 Months or Most Recently Relevant to Health Maintenance Results * Free T4 by Dialysis/Algebraist (03/02/2025 10:15 AM CDT) Free T4 1.0 0.9 - 2.2 ng/dL [facility], Comment: Reference Ranges for T4, Free, Direct Dialysis: First Trimester: 0.9-2.0 ng/dL Second Trimester: 0.8-1.5 ng/dL Third Trimester: 0.8-1.7 ng/dL This test was developed and its analytical performance characteristics have been determined by [employer]. It has not been cleared or approved by the FDA. This assay has been validated pursuant to the CLIA regulations and is used for clinical purposes. Blood 03/02/2025 10:1 5 AM CDT 03/02/2025 10:15 AM CDT Liyah Khan MD LAB BLOOD ORDERABLE S Final Result Performing Organization Address City/[facility]/ZIP Co de Phone Number [facility], [address] [place] [address] * (ABNORMAL) Thyroid peroxidase antibody (TPO) (03/02/2025 10:15 AM CDT) Thyroperoxidase ab 61(H) <9 IU/mL [facility] [facility] Blood 03/02/2025 10:1 5 AM CDT 03/02/2025 10:15 AM CDT us Liyah Khan MD LAB BLOOD ORDERABLE S Final Result Performing Organization Address [facility]/ZIP Co de Phone Number [facility] [address] [place] [address] * T3, free (03/02/2025 10:15 AM CDT) Free T3 3.3 2.3 - 4.2 pg/mL [facility] Blood 03/02/2025 10:1 5 AM CDT 03/02/2025 10:15 AM CDT us Liyah Khan MD LAB BLOOD ORDERABLE S Final Result Performing Organization Address City/[facility]/ZIP Co de Phone Number [facility] [address] [place] [address] * (ABNORMAL) TSH (03/02/2025 10:15 AM CDT) TSH 5.73(H) mIU/L [facility] Comment: Reference Range > or = 20 Years 0.40-4.50 Ranges First trimester 0.26-2.66 Second trimester 0.55-2.73 Third trimester 0.43-2.91 Blood 03/02/2025 10:1 5 AM CDT 03/02/2025 10:15 AM CDT us Liyah Khan MD LAB BLOOD ORDERABLE S Final Result [facility] [address] [address] * Hepatitis C antibody Blood (09/30/2024 12:00 [...] PM CDT us Jonathan Linton MD LAB MICROBIOLOGY - GENE RAL ORDERABLES Final Result [facility] [address] [facility] [place] [address] from Last 3 Months or Most Recently Relevant to Health Maintenance Insurance [facility] [employer] Care Teams Costume Technician Relationship Specialty Start Date End Date Jonathan Linton MD [address] [place] [address] PCP - General Family Medicine 12/15/24 Allison Leal MD [address] [place] [address] Obstetrics and Gynecology 09/30/24
--- OUTSIDE RECORDS SUMMARY | 2025-04-01 17:16 | XMS_ITS | Clinical Summary ---
Author Organization [facility] [employer] Address [address] [place] [address] Care Team Providers Care Metal Tank Builder Name Role Phone Unavailable Primary Care Provider Unavailabl e Source Comments [facility] [employer],non-owned Affiliates and Associated Physician Practices is amultiple site organization consisting of ambulatory clinics and hospital sitesin [place], [place], [place] and [place]. This disclosure is being madepursuant to the Care Everywhere program and may not contain all information available regarding this patient. Last updated 18.[employer] Allergies No known active allergies Medications * [...] mutation, heterozygous 9 Multiple thyroid nodules 02/16/2019 Resolved Problems Problem Noted Date Diagnosed Date Resolved Date Gestational hypertension, third trimester 07/26/2020 07/03/2024 with 37 weeks completed gestation 07/26/2020 07/03/2024 Gestational hypertension 07/18/2020 IUD (intrauterine device) in place 12/06/2019 Overview (02/12/2019): ParaGard IUD placed 12/16/14 Immunizations Immunization Administration Dates Next Due [facility] primary monoval ent 12+ yr 0.3mL Purple [...] Frequency of Binge Drinking Less than monthly Otho Depression Scale Answer Date Recorded Last EPDS Total Score Not on file 09/06/2020 The thought of harming myself has occurred to me . Never 09/06/2020 Comments No Sex and Gender Information Value Date Recorded [...] 10/10/2023 10/09/2020, 02/04, 12/27/2017, Additional history exists DEPRESSION SCREENING 07/07/2024 COVID-19 VACCINE ( season) 2025 07/15/2020, 06/28/2020 INFLUENZA VACCINE (#1) 2025 , 04/01/2023, 03/18/2022, Additional history exists DTAP/TDAP/TD VACCINES (4 - Td or Tdap) 05/16/2030 05/16/2020, 10/02/2016, 11/21/2006 ZOSTER VACCINE (1 of 2) 10/23/2043 HPV VACCINE Completed 07/31/2007, 01/2007, 11/21/2006 HIV SCREENING Completed 05/16/2020, 01/05/2020 HEPATITIS C SCREENING Completed 10/21/2022, 020 HIB VACCINE Aged Out No longer eligi [...] Procedure Name Priority Date/Time Associated Diagnosis Comments PAP IG RFLX HPV HR ALL PATH Routine 10/09/2020 11:03 AM CDT Well woman exam CULTURE STREP B Routine 07/13/2020 4:36 PM HUMAN GEOGRAPHY INSTRUCTOR Encounter for supervision of normal first in third trimester 35 weeks gestation of GLUCOSE CHALLENGE Routine 05/16/2020 10: 37 AM HUMAN GEOGRAPHY INSTRUCTOR Encounter for supervision of normal first in second trimester 27 weeks gestation of HIV-1 HIV-2 ANTIBODY + HIV P24 AG PANEL Routine 05/16/2020 10:37 AM HUMAN GEOGRAPHY INSTRUCTOR Encounter for supervision of normal first in second trimester 27 weeks gestation of HEPATITIS C ANTIBODY Routine 01/05/2020 10:58 AM CDT Encounter for supervision of normal first in first trimester from Last 3 Months or Most Recently Relevant to Health Maintenance Results * PAP IG RFLX HPV HR ALL PATH (10/09/2020 11:03 AM CDT) Diagnosis [facility] ACCOUNT BILL Comment:NEGATIVE FOR INTRAEP ITHELIAL LESION OR MALIGNANCY. Specimen Adequacy [facility] ACCOUNT BILL Comment: Satisfactory for evaluation. Endocervical and/or squamous metaplastic cells (endocervical component) are present. Clinician Provided ICD10 [facility] ACCOUNT BILL Comment:Z01.419 Performed by [facility] ACCOUNT BILL Comment:Isela Shelton, Cytot echnologist (ASCP) Comment . [facility] ACCOUNT [...] Resulting Agency Comment Lab Testing performed at: [address] Simran HermanV [id number] Jing Vaughan MD LAB - PATHOLOGY/CYTOLOGY OR DERABLES Final Result Performing Organization Address City/[facility] Co de Phone Number [facility] ACCOUNT BILL [address] [place] [address] * CULTURE STREP B (07/13/2020 4:36 PM HUMAN GEOGRAPHY INSTRUCTOR) Strep Group B Culture Negative Negative [facility] ACCOUNT BILL Comment: Centers for Disease Control and Prevention (CDC) and [place] Congress of Obstetricians and Gynecologists (ACOG) guidelines [...] MISCELLANEOUS SAMPLES / Unknown 07/13/2020 4:36 PM HUMAN GEOGRAPHY INSTRUCTOR 07/14/2020 Narrative Resulting Agency Comment Lab Testing performed at: [employer] [facility] [address] [place] [id number] Jing Vaughan MD LAB - MICROBIOLOGY ORDERABL ES Final Result Performing Organization Address City/[facility]/ZIP Co de Phone Number [facility] ACCOUNT BILL [address] [place] [address] * HIV-1 HIV-2 ANTIBODY + HIV P24 AG PANEL (05/16/2020 10:37 AM HUMAN GEOGRAPHY INSTRUCTOR) HIV Screen 4th Generation w Reflex Non Reactive Non Reactive [facility] ACCOUNT BILL Blood BLOOD SPECIMEN / Unknown 05/16/2020 10:37 AM HUMAN GEOGRAPHY INSTRUCTOR 05/16/2020 Narrative Resulting Agency Comment [facility] [address] [facility] [id number] Jing Vaughan MD LAB - CHEMISTRY ORDERABLES Final Result Performing Organization Address City/[facility]/ZIP Co de Phone Number [facility] ACCOUNT BILL [address] [place] [address] * GLUCOSE CHALLENGE (05/16/2020 10:37 AM HUMAN GEOGRAPHY INSTRUCTOR) Pathologist [facility] GTT 1Hr 131 65 - 139 mg/dL [facility] ACCOUNT BILL Comment: According to ADA, a glucose threshold of >139 mg/dL after 50-gram load identifies approximately 80% of women with gestational diabetes mellitus, while the sensitivity is further increased to approximately 90% by a threshold of >129 mg/dL. Blood BLOOD SPECIMEN / Unknown 05/16/2020 10:37 AM HUMAN GEOGRAPHY INSTRUCTOR 05/16/2020 Narrative Resulting Agency Comment Lab Testing performed at: [place] [id number] [facility] [id number] Jing Vaughan MD LAB - CHEMISTRY ORDERABLES Final Result Performing Organization Address [facility] de Phone Number [facility] ACCOUNT BILL [address] [place] [address] * HEPATITIS C ANTIBODY (01/05/2020 10:58 AM CDT) [facility] Hepatitis C Antibody <0.1 0.0 - 0.9 s/co ratio [facility] ACCOUNT BILL Comment: Negative: < 0.8 Indeterminate: 0.8 - 0.9 Positive: > 0.9 . The CDC recommends that a positive HCV antibody result be followed up with a HCV Nucleic Acid Amplification test (986492). Blood BLOOD SPECIMEN / Unknown 01/05/2020 10:58 AM CDT 01/05/2020 Narrative Resulting Agency Comment Lab Testing performed at: [place] [id number] [facility] [id number] Jing Vaughan MD LAB - CHEMISTRY ORDERABLES Final Result Performing Organization Address City/[facility]/ZIP Co de Phone Number [facility] ACCOUNT BILL [address] [place] [address] from Last 3 Months or Most Recently Relevant to Health Maintenance Insurance [employer] Advance Directives * Full Code (Latest Code Status on File) Date Activated Date Inactivated Comments 07/26/2020 6:11 PM 07/28/2020 4:57 PM
[2025-04-01 17:19] VITALS: BP 125/74; PULSE 87; RESP 16; TEMP 36.9; O2SAT 98
--- NOTE | 2025-04-01 17:35 | ED_ITS ---
HPI - URI/Sore Throat General Chief Complaint: Upper Respiratory Infection Stated Complaint: Cough X 3 weeks Time Seen by Provider: 04/01/25 17:22 Source: patient and RN notes reviewed Mode of arrival: ambulatory Limitations: no limitations History of Present Illness HPI Narrative: Patient presents today with a 3 week history of productive cough. Denies any additional symptoms to include congestion, rhinorrhea, sore throat, fever, shortness of breath. She has been taking Delsym and Mucinex with some improvement. No history of asthma or COPD. She does not smoke or vape. Related Data Home Medications ?Medication ?Instructions ?Recorded ?Confirmed ?Last Taken ?Type levothyroxine 25 mcg tablet mcg 04/01/25 Unknown Hist ory (Unithroid) Allergies Allergy/AdvReac Type Severity Reaction Status Date / Time No Known Allergies Allergy Verified 04/01/25 17:22 [facility] Past Medical History Medical History Suppression of menses Seizure at age 2 Factor 5 Leiden mutation, heterozygous Missed Depression Anxiety Gestational hypertension Surgical History Surgical History [place] teeth extracted and gum graft History of gynecologic surgery cyst removed from ovary Family History Family History Father Irregular heart rhythm Mother Factor 5 Leiden mutation, heterozygous Other Heart attack mat aunt Social History Social History Smoking status: Never smoker Second hand tobacco smoke exposure: No Alcohol intake: current Alcohol use details: socially Substance use: never Substance use type: does not use Do You Feel Safe in your Home?: Yes Lack of Transportation: No Lack of Food: Never True Current Housing: I Have Housing Concerned About Future Housing: No Difficulty Paying Gas/Electric Bills: No Difficulty Paying for Meds: No Currently Unemployed: No Education: Master's Degree or Higher Difficulty w/ Childcare or Family Care: No Living arrangements: with family Additional living arrangements comments: spouse and daughter Occupation/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 Please see nursing chart for further information. There is no relevant family history pertinent to the presenting complaint Exam Narrative: GENERAL: Well-appearing, well-nourished, and in no acute distress. HEAD: Normocephalic, atraumatic. EYES: EOMI. No redness or drainage. Conjunctivae normal. ENT: Mucous membranes pink and moist. Nares clear. No rhinorrhea. TMs normal bilaterally. Throat normal. Uvula midline. NECK: Normal AROM. Supple. No lymphadenopathy. CHEST: No respiratory distress. Mild Expiratory wheezing throughout. HEART: Regular rate and rhythm. No murmur appreciated. EXTREMITIES: Normal range of motion. No edema. SKIN: Warm, dry, no rash. Capillary refill normal. Normal skin turgor. NEURO: No focal deficits. Alert and oriented x3. Gait steady. PSYCH: Normal affect. No signs of depression or anxiety. Course Course Level of Care: Express Care Visit Vital Signs Vital signs: Vital Signs Temperature 98.5 F 04/01/25 17:19 Pulse Rate 87 04/01/25 17:19 Respiratory Rate 16 04/01/25 17:19 Blood Pressure 125/74 04/01/25 17:19 Pulse Oximetry 98 04/01/25 17:19 Oxygen Delivery Room Air 04/01/25 17:19 Temperature 98.5 F 04/01/25 17:19 Pulse Rate 87 04/01/25 17:19 Respiratory Rate 16 04/01/25 17:19 Blood Pressure 125/74 04/01/25 17:19 Pulse Oximetry 98 04/01/25 17:19 Oxygen Delivery Room Air 04/01/25 17:19 Reviewed MDM - URI/Sore Throat MDM Narrative Medical decision making narrative: Patient presents today with a 3 week history of productive cough. Denies any additional symptoms to include congestion, rhinorrhea, sore throat, fever, shortness of breath. She has been taking Delsym and Mucinex with some improvement. Upon exam, patient has expiratory wheezing throughout. Symptoms likely viral in etiology. Discussed continuing yptz-dfh-zjuxrwu medication if she would like. Prescriptions for an albuterol inhaler, prednisone, and spacer sent to pharmacy. Patient is not or pumping. Vital signs stable. Anticipatory guidance given. ED precautions given. Differential Diagnosis Differential diagnosis: Likely upper respiratory infection, viral infection, bronchitis and other (Pneumonia) Critical Care Time Critical Care Time Critical Care Time: No Discharge Plan Discharge Clinical Impression: Bronchitis Patient Disposition: Home Condition: Stable Instructions: Acute Bronchitis (ED) Additional Instructions: Please take all medications as prescribed. You may continue iagz-ydr-zjkuati cough medicine as directed on packaging. Follow-up with your PCP in 3 days if symptoms are improving. As discussed, if symptoms worsen to include development of new fever greater than 100.3, shortness of breath, chest pain, please go to the ER immediately for further evaluation and treatment. Patient Language: Moroccan Prescriptions: New prednisone 50 mg tablet 50 mg PO DAILY 5 Days Qty: 5 0RF albuterol sulfate 90 mcg/actuation HFA aerosol inhaler 2 inh inhalation Q4-6H PRN (Reason: shortness of breath or wheezing) Qty: 8.5 0RF (DME) [employer] MDI Spacer Spacer See Rx Instructions .ROUTE .MEDSUPPLY Qty: 1 0RF Rx Instructions: As directed No Action levothyroxine [Unithroid] 25 mcg tablet Follow-up/Referrals: PHYSICIAN NOT ON STAFF,NONSTAFF [Primary Care Provider] Time of Disposition: 17:34
== END 2025-04-01 17:39 | disposition home or self-care (01) ==
PROVIDERS: Emergency Provider Nurse Practitioner
DX: J40 Bronchitis, not specified as acute or chronic (principal)
CPT/HCPCS: 99213; G0463

== ENCOUNTER 2025-04-20 12:00 | Emergency (ER) | payer OTHER, SELFPAY ==
[2025-04-20 12:09] VITALS: BP 111/91; PULSE 93; RESP 18; TEMP 36.4; O2SAT 99
--- NOTE | 2025-04-20 12:19 | ED.URI ---
HPI - URI/Sore Throat General Chief Complaint: Upper Respiratory Infection Stated Complaint: Upper Respiratory Infection Time Seen by Provider: 04/20/25 12:19 Source: patient Mode of arrival: ambulatory Limitations: no limitations History of Present Illness HPI Narrative: 29-year-old female presents with complaint sinus pressure, congestion, postnasal drainage for past 2 weeks. Prior to that patient reports cough for 3 weeks. Has been sick for a total of approximately 5 weeks. Was seen for cough and treated for bronchitis with albuterol inhaler and steroids. Patient states cough is improving. No chest pain or shortness of breath. Afebrile. Using giag-wsb-tfddwhr Flonase. All systems reviewed and negative except as noted above. Related Data Home Medications ?Medication ?Instructions ?Recorded ?Confirmed ?Last Taken ?Type levothyroxine 25 mcg tablet mcg 04/01/25 04/07/25 Unknown History (Unithroid) Allergies Allergy/AdvReac Type Severity Reaction Status Date / Time No Known Allergies Allergy Verified 04/20/25 12:10 [facility] Past Medical History Medical History Suppression of menses Seizure at age 2 Factor 5 Leiden mutation, heterozygous Missed Depression Anxiety Gestational hypertension Surgical History Surgical History [place] teeth extracted and gum graft History of gynecologic surgery cyst removed from ovary Family History Family History Father Irregular heart rhythm Mother Factor 5 Leiden mutation, heterozygous Other Heart attack mat aunt Social History Social History (Updated 04/07/25 @ 10:05 by Rachel Hickman CMA) Smoking status: Never smoker Second hand tobacco smoke exposure: No Alcohol intake: current Alcohol use details: socially Substance use: never Substance use type: does not use Do You Feel Safe in your Home?: Yes Lack of Transportation: No Lack of Food: Never True Current Housing: I Have Housing Concerned About Future Housing: No Difficulty Paying Gas/Electric Bills: No Difficulty Paying for Meds: No Currently Unemployed: No Education: Master's Degree or Higher Difficulty w/ Childcare or Family Care: No Living arrangements: with family Additional living arrangements comments: spouse and daughter Occupation/Education: occupation 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 There is no relevant family history pertinent to the presenting complaint. Exam Narrative: GENERAL: This is a well-nourished, well-developed patient, in no apparent distress. HEAD: normocephalic, atraumatic. EYES: PERRL. Sclera clear/white. Vision is grossly intact. EARS: External ears normal, Purulent nasal drainage, bilateral TMs normal without perforation. NOSE: External nose normal with Erythema and swelling to bilateral nares purulent nasal drainage. Maxillary And frontal sinus tenderness on palpation. THROAT: Mucous membranes moist, postnasal drainage with erythema. No swelling or exudates NECK: Neck supple, non-tender without lymphadenopathy, masses or thyromegaly. CARDIOVASCULAR: Regular rate and rhythm without murmurs, gallops, or rubs. RESPIRATORY: Clear to auscultation. Breath sounds equal bilaterally. No wheezes, rales, or rhonchi. SKIN: warm, Dry, intact with no suspicious lesions or rash, good texture and turgor. NEURO: awake, alert, and oriented to person, place and time. There were no obvious focal neurologic abnormalities. EXTREMITIES: No joint tenderness, effusion, or edema noted. Course Course Level of Care: Express Care Visit Vital Signs Vital signs: Vital Signs Temperature 36.4 C L 04/20/25 12:09 Pulse Rate 93 04/20/25 12:09 Respiratory Rate 18 04/20/25 12:09 Blood Pressure 111/91 H 04/20/25 12:09 Pulse Oximetry 99 04/20/25 12:09 Oxygen Delivery Room Air 04/20/25 12:09 Temperature 36.4 C L 04/20/25 12:09 Pulse Rate 93 04/20/25 12:09 Respiratory Rate 18 04/20/25 12:09 Blood Pressure 111/91 H 04/20/25 12:09 Pulse Oximetry 99 04/20/25 12:09 Oxygen Delivery Room Air 04/20/25 12:09 reviewed MDM - URI/Sore Throat MDM Narrative Medical decision making narrative: will treat for bacterial sinusitis due to duration of symptoms exam findings. Patient is alert, nontoxic. Differential Diagnosis Differential diagnosis: Likely upper respiratory infection, sinusitis and viral infection Discharge Plan Discharge Clinical Impression: Acute bacterial sinusitis Patient Disposition: Home Condition: Stable Instructions: Antibiotic Form, Sinusitis (ED) Additional Instructions: Take antibiotic as prescribed until gone. Continue qayn-tgu-[id number] Flonase as directed on packaging. Start an gdpt-ofx-wcrjhof antihistamine , such as Claritin or Zyrtec, and take as directed on packaging. Drink at least 64 oz of water a day. See your primary care physician if symptoms are not improving. Patient Language: Marshallese Prescriptions: New amoxicillin-pot clavulanate 875-125 mg tablet 1 tablet PO Q12H 7 Days Qty: 14 0RF No Action levothyroxine [Unithroid] 25 mcg tablet Follow-up/Referrals: Royer,Jonathan Atkins MD [Primary Care Provider, Unknown] Time of Disposition: 12:27
--- OUTSIDE RECORDS SUMMARY | 2025-04-20 13:53 | XMS_ITS | Clinical Summary ---
Author Organization [facility] Address [address] [place] [address] Care Team Providers Care Professor Of Fine Art Name Role Phone Unavailable Primary Care Provider Unavailabl e Source Comments [facility],non-owned Affiliates and Associated Physician Practices is amultiple site organization consisting of ambulatory clinics and hospital sitesin [place], [place], [place] and [place]. This disclosure is being madepursuant to the Care Everywhere program and may not contain all information available regarding this patient. Last updated 18.[facility] Allergies No known active allergies Medications * [...] 12/16/14 Immunizations Immunization Administration Dates Next Due Cov[employer] Farms primary monoval ent 12+ yr 0.3mL Purple [...] Frequency of Binge Drinking Less than monthly [place] Depression Scale Answer Date Recorded Last EPDS [...] CULTURE STREP B Routine 07/13/2020 4:36 PM [facility] Encounter for supervision of normal first in third trimester 35 weeks gestation of GLUCOSE CHALLENGE Routine 05/16/2020 10: 37 AM [facility] Encounter for supervision of normal first in second trimester 27 weeks gestation of HIV-1 HIV-2 ANTIBODY + HIV P24 AG PANEL Routine 05/16/2020 10:37 AM [facility] Encounter for supervision of normal first in [...] Resulting Agency Comment Lab Testing performed at: [address] Simran HermanV [id number] Jing Vaughan MD LAB - PATHOLOGY/CYTOLOGY OR DERABLES Final Result Performing Organization Address City/[facility] Co de Phone Number [facility] ACCOUNT BILL [address] [place] [address] * CULTURE STREP B (07/13/2020 4:36 PM [facility]) Strep Group B Culture Negative Negative [facility] ACCOUNT BILL Comment: Centers for Disease Control and Prevention (CDC) and [place] [employer] of Obstetricians and Gynecologists (ACOG) guidelines [...] MISCELLANEOUS SAMPLES / Unknown 07/13/2020 4:36 PM [facility] 07/14/2020 Narrative Resulting Agency Comment Lab Testing performed at: [facility] [address] [place] [id number] Jing Vaughan MD LAB - MICROBIOLOGY ORDERABL ES Final Result Performing Organization Address City/[facility]/ZIP Co de Phone Number [facility] ACCOUNT BILL [address] [place] [address] * HIV-1 HIV-2 ANTIBODY + HIV P24 AG PANEL (05/16/2020 10:37 AM [facility]) HIV Screen 4th Generation w Reflex Non Reactive Non Reactive [facility] ACCOUNT BILL Blood BLOOD SPECIMEN / Unknown 05/16/2020 10:37 AM [facility] 05/16/2020 Narrative Resulting Agency Comment [facility]: [facility] [address] [id number] Jing Vaughan MD LAB - CHEMISTRY ORDERABLES Final Result Performing Organization Address City/[facility]/ZIP Co de Phone Number [facility] ACCOUNT BILL [address] [place] [address] * GLUCOSE CHALLENGE (05/16/2020 10:37 AM [facility]) Pathologist [facility] GTT 1Hr 131 65 - 139 mg/dL [facility] ACCOUNT BILL Comment: According to ADA, a glucose threshold of >139 mg/dL after 50-gram load identifies approximately 80% of women with gestational diabetes mellitus, while the sensitivity is further increased to approximately 90% by a threshold of >129 mg/dL. Blood BLOOD SPECIMEN / Unknown 05/16/2020 10:37 AM [facility] 05/16/2020 Narrative Resulting Agency Comment Lab Testing performed at: [place] [id number] [facility] [id number] Jing Vaughan MD LAB - CHEMISTRY ORDERABLES Final Result Performing Organization Address [facility] de Phone Number [facility] ACCOUNT BILL [address] [place] [address] * HEPATITIS C ANTIBODY (01/05/2020 10:58 AM CDT) [facility] Hepatitis C Antibody <0.1 0.0 - 0.9 s/co ratio [facility] ACCOUNT BILL Comment: Negative: < 0.8 Indeterminate: 0.8 - 0.9 Positive: > 0.9 . The CDC recommends that a positive HCV antibody result be followed up with a HCV Nucleic Acid Amplification test (793096). Blood BLOOD SPECIMEN / Unknown 01/05/2020 10:58 AM CDT 01/05/2020 Narrative Resulting Agency Comment Lab Testing performed at: [place] [id number] [facility] [id number] Jing Vaughan MD LAB - CHEMISTRY ORDERABLES Final Result Performing Organization Address City/[facility]/ZIP Co de Phone Number [facility] ACCOUNT BILL [address] [place] [address] from Last 3 Months or Most Recently Relevant to Health Maintenance Insurance [employer] Advance Directives * Full Code (Latest Code Status on File) Date Activated Date Inactivated Comments 07/26/2020 6:11 PM 07/28/2020 4:57 PM
--- OUTSIDE RECORDS SUMMARY | 2025-04-20 13:53 | XMS_ITS | Clinical Summary ---
Author Organization [facility] Address [address] [place] [address] Phone Care Team Providers Care Podiatry Doctor Name Role Phone Allison Leal MD Unavailable [phone] Jonathan Linton MD Primary Care Provider Liyah Sales MD Unavailable [phone] Allergies No known active allergies Medications multivit with min-folic acid 200 mcg tablet,chewable Take by mouth Active Unithroid 25 mcg tabletIndicatio ns:Cruz thyroiditis,Mul tinodular goiter (nontoxic) Take 1 tablet (25 mcg total) by mouth conductor/brakeman before breakfast 90 tablet 5 Active VIT 10-IRON FUM-FOLIC ORAL Take by mouth daily 04/04/20 25 Discontinu ed(Therapy completed) aspirin 81 mg chewable tablet Take 1 tablet (81 mg total) by mouth daily 04/04/20 25 Discontinu ed(Therapy completed) Active Problems Problem Noted Date Diagnosed Date Preventative health care 04/04/2025 Assessment & Plan (04/04/2025 9:42 AM CDT): - New or chronic worsening conditions: Bronchitis - Mental health: no significant psychiatric/mental health conditions affecting her day to day functioning - Dental health: Recommend regular dental care and cleaning. Discussed importance of regular tooth brushing, flossing, and dental visits. - Nutrition: Recommend moderation in sodium/caffeine intake, saturated fat and cholesterol, caloric balance, sufficient intake of fresh fruits, vegetables - Exercise: Recommend to exercise at least 30 minutes moderate to vigorous exercise most days of the week. (minimum 150 minutes weekly) - Immunizations: Age and sex appropriate immunizations reviewed and offered - Cervical Cancer screening: Up to date, follows with OBGYN - Breast Cancer screening: Up to date - Colon cancer screening: not indicated - Lung cancer screening: not indicated - Bone desnity/osteoporosis screening:not indicated - control: none Multiple thyroid nodules 09/30/2024 Assessment & Plan (04/04/2025 9:42 AM CDT): - known condition - past [...] record in future - hx of cruz's Assessment & Plan (09/30/2024 11:51 AM CDT): [...] of gestational hypertension 03/03/2024 Assessment & Plan (04/04/2025 9:42 AM CDT): BP Readings from Last 3 Encounters: 04/04/25 124/78 02/24/25 124/80 09/30/24 102/64 Delivery at 37 weeks for gestational HTN in the past Currently at 29 weeks Assessment & Plan (09/30/2024 11:49 AM CDT): [...] 2.73 09/30/2024 FREET4 0.61 (L) 09/30/2024 From [facility] labs on 02/2024 patient had elevated thyroglobulin antibodies 391, and elevated thyroid peroxidase antibodies at 46 Assessment & Plan (04/04/2025 9:42 AM CDT): - 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 Current ultrasound from July 2024 shows a multinodular goiter, well-managed since November 2023. - Reviewed previous US records from 07/2024 - past US thyroid 07/2024 in file, showed stable findings in comparison to imaging from 11/2024 - In future will request FNA results from around 2015 Lab Results Component Value Date TSH 5.73 (H) 03/02/2025 Assessment & Plan (09/30/2024 11:52 AM CDT): [...] future will request FNA results from around 2016 - Order blood work including thyroid function tests and antibodies - Monitor thyroid function during - Follow up in six months post- No results found for: TSH Comments Yes Resolved Problems Problem Noted Date Diagnosed Date Resolved Date Factor V Leiden mutation 03/03/2024 Encounters Date Type Department Care Team Description 04/04/2025 9:00 AM CDT Office Visit [facility] Primary Care at [address] [address] Jonathan Linton MD Preventative health care (Primary Dx); Multiple thyroid nodules; Cruz thyroiditis; History of gestational hypertension; Bronchitis 03/14/2025 Results Follow-Up [facility] of [address] [address] Liyah Sales MD TSH, T3, free, Thyroid peroxidase antibody (TPO), Free T4 by Dialysis/Evp Managing Director 02/24/2025 3:30 PM CDT Office Visit [facility] [address] [address] Liyah Sales MD Cruz thyroiditis (Primary Dx); Multinodular goiter (nontoxic) 01/20/2025 Orders Only [facility] Primary Care at [address] [address] oJnathan Linton MD Cruz thyroiditis (Primary Dx) 01/19/2025 Telephone [facility] Primary Care at [address] [address] Jonathan Linton MD Medical Question/Miscellaneo us 01/19/2025 Telephone [facility] [address] [phone] Bill Khan, Liyah Khan MD AMUSEMENT CENTRE MANAGER Appt Request from Last 3 Months Immunizations [...] Preser vative Free, Intramuscular 04/09/2024 Influenza, Unspecified 04/04/2025(Deferr ed: Patient Refused),07/07/2024(Deferred: Patient Refused),02/18/2017 PPD TEST 04/16/2019,08/09/2017 Tdap 09/21/2024, 0,10/02/2016,11/21 Surgical History Surgery Date [...] points, staff should administer the PHQ-9) 0 04/04/2025 Comments Yes Sex and Gender Information Value [...] Sign Reading Time Taken Comments Blood Pressure 124/78 04/04/2025 9:10 AM CDT Pulse 78 04/04/2025 9:10 AM CDT Temperature 36.8 C (98.2 F) 04/04/2025 9:10 AM CDT Respiratory Rate - - Oxygen Saturation 98% 04/04/2025 9:10 AM CDT Inhaled Oxygen Concentration - - Weight 105.7 kg (233 lb 1.6 oz) 04/04/2025 9:10 AM CDT Height 175.3 cm (5' 9) 04/04/2025 9:10 AM CDT Body Mass Index 34.42 04/04/2025 9:10 AM CDT Plan of Treatment Health Maintenance Due Date Last Done Comments Cervical Cancer Screening 1993 Varicella Vaccines (1 of 2 - 13+ 2-dose series) 2006 Influenza Vaccine (#1) 2025 , 04/01/2023, 03/18/2022, Additional history exists Depression Screening 04/04/2026 04/04/2025, 10/01/19 Regular Well Visit/Exam 18-64 04/04/2026 04/04/2025 DTaP/Tdap/Td Vaccine (5 - Td or Tdap) [...] Date/Time Associated Diagnosis Comments FREE T4 BY DIALYSIS/SURVEYOR GEODETIC Routine 03/02/2025 10:15 AM CDT Cruz thyroiditis [...] Health Maintenance Results * Free T4 by Dialysis/Evp Managing Director (03/02/2025 10:15 AM CDT) Free T4 1.0 0.9 - 2.2 ng/dL [facility]/Stephanie elaines [facility], Comment: Reference Ranges for T4, Free, Direct Dialysis: First Trimester: 0.9-2.0 ng/dL Second Trimester: 0.8-1.5 ng/dL Third Trimester: 0.8-1.7 ng/dL This test was developed and its analytical performance characteristics have been determined by [facility]. It has not been cleared or approved by the FDA. This assay has been validated pursuant to the CLIA regulations and is used for clinical purposes. Blood 03/02/2025 10:1 5 AM CDT 03/02/2025 10:15 AM CDT us Liyah Khan MD LAB BLOOD ORDERABLE S Final Result [facility] [address] [place] [address] * (ABNORMAL) Thyroid peroxidase antibody (TPO) (03/02/2025 10:15 AM CDT) Thyroperoxidase ab 61(H) <9 IU/mL [facility] Blood 03/02/2025 10:1 5 AM CDT 03/02/2025 10:15 AM CDT us Liyah Khan MD LAB BLOOD ORDERABLE S Final Result [facility] [address] [place] [address] * T3, free (03/02/2025 10:15 AM CDT) Pathologist [facility] Free T3 3.3 2.3 - 4.2 pg/mL [facility] Blood 03/02/2025 10:1 5 AM CDT 03/02/2025 10:15 AM CDT Liyah Khan MD LAB BLOOD ORDERABLE S Final Result Performing Organization Address [facility] Co de Phone Number [facility] [address] [place] [address] * (ABNORMAL) TSH (03/02/2025 10:15 AM CDT) Pathologist [facility] TSH 5.73(H) mIU/L [facility] Comment: Reference Range > or = 20 Years 0.40-4.50 Ranges First trimester 0.26-2.66 Second trimester 0.55-2.73 Third trimester 0.43-2.91 Blood 03/02/2025 10:1 5 AM CDT 03/02/2025 10:15 AM CDT Liyah Khan MD LAB BLOOD ORDERABLE S Final Result Performing Organization Address [facility] de Phone Number [facility] [address] [place] [address] * Hepatitis C antibody Blood (09/30/2024 12:00 PM CDT) Pathologist [facility] Hep C Ab Nonreactive Nonreactive Comment: Interpretive [...] - GENE [place] [address] [address] Department [place] [address] from Last 3 Months or Most Recently Relevant to Health Maintenance Insurance [facility] CIGNA AENA SIG [id number] Care Teams Podiatry Doctor Relationship Specialty Start Date End Date Jonathan Linton MD [address] [place] [address] PCP - General Family Medicine 12/15/24 Allison Leal MD [address] [place] [address] Obstetrics and Gynecology 09/30/24 [place] [address] [place] [address] Consulting Physician Endocrinology Diabetes & Metabolism 04/04/25
== END 2025-04-20 12:32 | disposition home or self-care (01) ==
PROVIDERS: Emergency Provider Nurse Practitioner Family; PCP Family Medicine
DX: J01.90 Acute sinusitis, unspecified (principal); D68.51 Activated protein C resistance
CPT/HCPCS: 99213; G0463